=== PATIENT | female | born 1975 | race Caucasian/White ===

== ENCOUNTER 2018-03-24 01:06 | Outpatient (CLI) | payer OTHER, SELFPAY ==
[2018-03-24 11:32] LABS: HGB 12.3 g/dL (12.0-15.5); Mean Corp. HGB Concentration 32.4 g/dL (32.0-36.0); Mean Corpuscular Hemoglobin 27.6 pg (27.0-33.0); Mean Corpuscular Volume 85.4 fL (80-95); Mean Platelet Volume 10.3 fL (8.0-11.0); Platelet Count 362 x1000/uL (130-400); RBC 4.45 m/cumm (4.00-5.20); White Blood Cell Count 6.52 k/cumm (4.4-10.8)
[2018-03-24 11:58] LABS: Total Iron Binding Capacity 399 ug/dL (250-450)
[2018-03-24 12:12] LABS: Albumin 3.7 g/dL (3.4-5.0); Ferritin 30 ng/mL (8-388); TSH (W/Ref FT4) 0.59 uIU/mL (0.358-3.74)
== END 2018-03-24 01:26 ==
PROVIDERS: PCP Nurse Practitioner; Visit Provider Nurse Practitioner
DX: L65.9 Nonscarring hair loss, unspecified (principal)
CPT/HCPCS: 36415; 85027; 82040; 82728; 83550; 84443

== ENCOUNTER 2018-09-12 03:02 | Outpatient (CLI) | payer OTHER, SELFPAY | END 2018-09-12 03:22 | PROVIDERS: PCP Nurse Practitioner Family; Visit Provider Nurse Practitioner Family | DX: J98.9 Respiratory disorder, unspecified (principal) ==

== ENCOUNTER 2018-09-13 00:32 | Outpatient (CLI) | payer OTHER, SELFPAY ==
--- NOTE | 2018-09-13 07:20 | DI.US_ITS ---
SYMPTOMS/DIAGNOSIS: OCCASIONAL MENSTRUAL IRREGULARITY, N92.6, S/P TUBAL LIGATION PELVIC ULTRASOUND: A transabdominal and transvaginal examination was carried out. The uterus measures 7.3 cm in length, 5. 4 cm in height and 6.9 cm in width with an endometrial stripe thickness of 17 mm. The right ovary measures 3.3 x 1.4 x 1.3 cm. A dominant follicle measures 9 x 6 x 8 mm. The left ovary measures 2.2 x 1.1 x 1 cm. There is no evidence of pelvic free fluid. SUMMARY: Prominence of the endometrial stripe at 17 mm is demonstrated. The patient may be in the secretory phase. If there is any further question, then a follow-up pelvic ultrasound could be obtained.
--- NOTE | 2018-09-13 15:19 | DI.MAMMO_ITS ---
SYMPTOM/DIAGNOSIS: SCREENING Z12.31 MAMMOGRAM: Mammograms were interpreted according to the usual protocol including computer analysis with CAD system, tomosynthesis and C view imaging. Comparison with prior examinations. Breast density B. No suspicious microcalcifications seen. No suspicious masses are seen in the right breast. There are areas of nodularity in the upper outer quadrant of the left breast. These areas should be further evaluated with spot compression views. Ultrasound may be indicated at that time. IMPRESSION: Additional views of the left breast as described above. Category 0 Breast density category B. MQSA ASSESSMENT OF FINDINGS: Incomplete: Needs additional imaging evaluation. Category 0. Patient will receive a letter notifying them of these results. BI-RADS category B. There are scattered areas of fibroglandular density.
== END 2018-09-13 00:52 ==
PROVIDERS: PCP Nurse Practitioner Family; Visit Provider Nurse Practitioner Family
DX: Z12.31 Encounter for screening mammogram for malignant neoplasm of breast (principal); R92.8 Other abnormal and inconclusive findings on diagnostic imaging of breast; N92.6 Irregular menstruation, unspecified; Z98.51 Tubal ligation status
CPT/HCPCS: 77063; 77067; 76830; 76856

== ENCOUNTER 2018-09-22 00:51 | Outpatient (CLI) | payer OTHER, SELFPAY ==
--- NOTE | 2018-09-22 15:12 | DI.COMBO_ITS ---
SYMPTOMS/DIAGNOSIS: F/U ABNORMAL MAMMO, NODULARITY LEFT UPPER OUTER QUADRANT ADDITIONAL VIEWS OF THE LEFT BREAST AND A LEFT BREAST ULTRASOUND: No definite persistent nodule or abnormality is seen on the additional views of the left breast. A left breast ultrasound was performed. The upper inner and upper outer quadrants of the left breast were evaluated sonographically. No cystic or solid masses are seen. No evidence for malignancy. A six-month follow-up left mammogram is recommended for reevaluation. Category 3, breast density B. The findings were discussed with the patient on the date of the examination. MQSA ASSESSMENT OF FINDINGS: Probably benign. Six month follow-up recommended. Category 3. Patient will receive a letter notifying them of these results. BI-RADS category B. There are scattered areas of fibroglandular density.
== END 2018-09-22 01:11 ==
PROVIDERS: PCP Nurse Practitioner Family; Visit Provider Nurse Practitioner Family
DX: Z12.31 Encounter for screening mammogram for malignant neoplasm of breast (principal); R92.8 Other abnormal and inconclusive findings on diagnostic imaging of breast; N64.59 Other signs and symptoms in breast
CPT/HCPCS: 76642; 77063; 77067

== ENCOUNTER 2018-10-10 00:45 | Outpatient (CLI) | payer OTHER, SELFPAY ==
--- NOTE | 2018-10-10 09:00 | DI.US_ITS ---
SYMPTOM/DIAGNOSIS: MENSTRUAL IRREGULARITY, N92.6 PELVIC ULTRASOUND: Transabdominal and transvaginal examination was performed. The uterus measures 7.5 cm. long by 5 cm. AP by 6.6 cm. transverse. The endometrial stripe is thickened measuring up to 2 cm. in diameter, greatest thickness is seen in the fundal endometrium. No abnormal blood flow is seen. The right ovary measures 2.4 by 1.2 by 1.6 cm. There is normal blood flow. No evidence of torsion. The left ovary measures 2.8 by 2.8 by 2.6 cm. There is a 2.5 by 2.3 by 2.3 cm. cyst on the left ovary with internal debris. No abnormal blood flow is seen to the cyst. There is normal blood flow to the left ovary. No evidence of torsion. No significant free pelvic fluid or hydronephrosis is identified. IMPRESSION: 1. Persistent thickening of the endometrial stripe up to 2 cm. It is more focally thickened in the fundal endometrium. Mass cannot be entirely excluded. Follow up as clinically appropriate. 2. 2.5 cm. complex left ovarian cyst, likely reflecting a hemorrhagic cyst.
== END 2018-10-10 01:05 ==
PROVIDERS: PCP Nurse Practitioner Family; Visit Provider Nurse Practitioner Family
DX: N92.6 Irregular menstruation, unspecified (principal); R93.89 Abnormal findings on diagnostic imaging of other specified body structures; N83.12 Corpus luteum cyst of left ovary
CPT/HCPCS: 76830; 76856

== ENCOUNTER 2018-10-31 15:32 | Outpatient (REF) | payer OTHER, SELFPAY ==
--- NOTE | 2018-10-31 15:00 | ENDOMET_PTH ---
PATIENT: Mini Huerta LOC: [facility] U#:[id number] AGE/SX: 43/F ROOM: RE10/31/[address]: Mae Ryan MD : 1975 BED: DIS: 10/31/2018 SPEC #: [id number] RECD: 10/31/18 17:55 STATUS: KATE REQ #: [id number] RAKEL: 10/31/18 15:[address]: Mae Ryan DEPT: Surgical Specimen RECD BY: Janette Hernandez ENTERED: 10/31/18 17:55 SP TYPE: Endomet OT DR: LUIGI Leyva Tissues: 1 - ENDOMETRIUM BX/DORA Procedures: GROSS AND MICRO LEVEL 4 Comments: [id number]
== END 2018-10-31 15:52 ==
LOC: LBN 15:32
PROVIDERS: PCP Nurse Practitioner Family; Visit Provider Obstetrics & Gynecology
DX: N85.01 Benign endometrial hyperplasia (principal); N92.6 Irregular menstruation, unspecified
CPT/HCPCS: 88305

== ENCOUNTER 2018-12-01 10:01 | Outpatient (CLI) | payer OTHER, SELFPAY ==
[2018-12-01 11:36] LABS: Iron 70 ug/dL (50-175)
[2018-12-01 11:58] LABS: Ferritin 18 ng/mL (8-388); TSH 0.81 uIU/mL (0.358-3.74)
== END 2018-12-01 10:21 ==
PROVIDERS: PCP Nurse Practitioner Family; Visit Provider Internal Medicine
DX: G25.81 Restless legs syndrome (principal)
CPT/HCPCS: 36415; 82728; 83540; 84443

== ENCOUNTER 2019-03-28 01:05 | Outpatient (CLI) | payer OTHER, SELFPAY ==
--- NOTE | 2019-03-28 08:57 | DI.MAMMO_ITS ---
EXAM: MG MAMMO DIAGNOSTIC UNI CLINICAL HISTORY: 6mo f/u left breast mammogram R92.8. TECHNIQUE: Mammograms were interpreted according to the usual protocol including computer analysis w Brain in [employer] CAD system, tomosynthesis and C-view imaging. COMPARISON: Comparison is made with prior images. FINDINGS: When compared with the previous examination of 09/13/2018, there has been no interval change in the st atus of the left breast. There is a small radiodensity in the lateral portion of the breast which co uld represent an intramammary lymph node. IMPRESSION: No mass is identified on the six-month follow-up images of the breast. Category 1, BI-RADS B. BI-RADS Cat 1 - Negative. Breast Density - Category B - Scattered areas of fibroglandular density.
== END 2019-03-28 01:25 ==
PROVIDERS: PCP Nurse Practitioner Family; Visit Provider Nurse Practitioner Family
DX: Z12.31 Encounter for screening mammogram for malignant neoplasm of breast (principal); R92.8 Other abnormal and inconclusive findings on diagnostic imaging of breast; R59.0 Localized enlarged lymph nodes
CPT/HCPCS: 77061; 77065; G0279

== ENCOUNTER 2019-07-19 01:44 | Outpatient (CLI) | payer OTHER, SELFPAY | END 2019-07-19 02:04 | PROVIDERS: PCP Nurse Practitioner Family; Visit Provider Nurse Practitioner Family | DX: R69 Illness, unspecified (principal) | CPT/HCPCS: 36415; 85025 ==

== ENCOUNTER 2019-07-24 10:04 | Outpatient (CLI) | payer OTHER, SELFPAY ==
[2019-07-24 13:27] LABS: Abs Immature Grans 0.02 k/cumm (0.0-0.09); Absolute Basophil Count 0.04 k/cumm (0.0-0.2); Absolute Eosinophil Count 0.06 k/cumm (0.0-0.7); Absolute Lymphocyte Count 2.61 k/cumm (1.2-3.4); Absolute Monocyte Count 0.71 k/cumm (0.11-0.7); Absolute Neutrophil Count 3.28 k/cumm (1.2-6.7); Basophils % 0.6; Eosinophils % 0.9; HCT 39.8 % (36.0-46.0); HGB 12.9 g/dL (12.0-15.5); Immature Grans % 0.3 %; Lymphocytes % 38.8; Mean Corp. HGB Concentration 32.4 g/dL (32.0-36.0); Mean Corpuscular Hemoglobin 27.6 pg (27.0-33.0); Mean Corpuscular Volume 85.2 fL (80-95); Mean Platelet Volume 10.7 fL (8.0-11.0); Monocytes % 10.6; Neutrophils % 48.8; Platelet Count 359 x1000/uL (130-400); RBC 4.67 m/cumm (4.00-5.20); White Blood Cell Count 6.72 k/cumm (4.4-10.8)
[2019-07-24 14:05] LABS: ALT 23 U/L (14-59); AST 10 U/L (15-37); Albumin 3.9 g/dL (3.4-5.0); Alkaline Phosphatase 57 U/L (46-116); Anion Gap 7.6 mmol/L (3-11); BUN 20 mg/dL (7-18); Bilirubin, Total 0.2 mg/dL (0.2-1.0); CO2 28.4 mmol/L (21.0-32.0); CREATININE 0.78 mg/dL (0.55-1.02); Chloride 105 mmol/L (98-107); Glucose 78 mg/dL (74-106); Potassium 4.4 mmol/L (3.5-5.1); Sodium 141 mmol/L (136-145); Total Protein 7.3 g/dL (6.4-8.2)
[2019-07-24 14:16] LABS: Hemoglobin A1C 5.9 % (3.8-5.6)
[2019-07-30 15:56] LABS: Misc Referral (MAYO) See Comments
== END 2019-07-24 10:24 ==
PROVIDERS: PCP Nurse Practitioner Family; Visit Provider Nurse Practitioner Family
DX: E78.5 Hyperlipidemia, unspecified (principal); H30.91 Unspecified chorioretinal inflammation, right eye
CPT/HCPCS: 36415; 80053; 81374; 83036; 85025

== ENCOUNTER 2019-08-14 08:09 | Outpatient (CLI) | payer OTHER, SELFPAY ==
[2019-08-14 14:33] LABS: Calculated LDL 168 mg/dL (<100); Cholesterol 233 mg/dL (<200); HDL Cholesterol 45 mg/dL (40-60); Triglyceride 104 mg/dL (<150)
== END 2019-08-14 08:29 ==
PROVIDERS: PCP Nurse Practitioner Family; Visit Provider Nurse Practitioner Family
DX: E78.5 Hyperlipidemia, unspecified (principal)
CPT/HCPCS: 36415; 80061

== ENCOUNTER 2019-09-06 10:31 | Outpatient (REF) | payer OTHER, SELFPAY ==
--- NOTE | 2019-09-06 09:30 | PAPFT_PTH ---
PATIENT: Mini Huerta LOC: [facility] U#:[id number] AGE/SX: 44/F ROOM: RE09/06/[address]: LUIGI Leyva : 1975 BED: DIS: 09/06/2019 SPEC #: [id number] RECD: 09/06/19 12:39 STATUS: KATE GARCIA #: [id number] RAKEL: 09/06/19 09:[address]: Zoe Rodriguez DEPT: [facility] Cytology RECD BY: Janette Hernandez Tissues: 1 - CX/ENDOCX FOR PAP SMEARS Procedures: PAP THIN PREP/UVM Screening HPV DNA PROBE Comments: [id number]
== END 2019-09-06 10:51 ==
LOC: LBN 10:31
PROVIDERS: PCP Nurse Practitioner Family; Visit Provider Nurse Practitioner Family
DX: Z12.4 Encounter for screening for malignant neoplasm of cervix (principal); Z11.51 Encounter for screening for human papillomavirus (HPV)
CPT/HCPCS: 88142; 87624

== ENCOUNTER 2019-11-28 01:18 | Outpatient (CLI) | payer OTHER, SELFPAY ==
--- NOTE | 2019-11-28 06:15 | DI.MAMMO_ITS ---
EXAM: MAMMO SCREENING CLINICAL HISTORY: screening,Z12.39 TECHNIQUE: Mammograms were interpreted according to the usual protocol including computer analysis w [employer] CAD system, tomosynthesis and C-view imaging. COMPARISON: 2016 through 2019 FINDINGS: The breasts are composed of scattered fibroglandular densities, Breast Density category B. Right breast: No suspicious masses or suspicious microcalcifications are seen. No skin thickening or abnormal axillary lymph nodes are seen. There has been no significant change from prior exams. Left breast: There has been interval increase in size of 2 previously noted nodules in the upper oute r quadrant of the posterior left breast. There is a suggestion of spiculation. No associated calcif ications are seen. No normal axillary lymph nodes are visible. IMPRESSION: Right breast: BI-RADS category 1, yearly screening mammography is recommended. Left breast: BI-RADS Cat 0 - Assessment Incomplete: Need additional imaging evaluation spot compressi on views and ultrasound are requested for further evaluation of areas of nodularity in the upper oute r quadrant of the left breast. Breast density category B, scattered fibroglandular densities.
== END 2019-11-28 01:38 ==
PROVIDERS: PCP Nurse Practitioner Family; Visit Provider Nurse Practitioner Family
DX: Z12.31 Encounter for screening mammogram for malignant neoplasm of breast (principal); R92.8 Other abnormal and inconclusive findings on diagnostic imaging of breast
CPT/HCPCS: 77063; 77067

== ENCOUNTER 2019-12-08 10:56 | Emergency (ER) | payer OTHER, SELFPAY ==
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
[2019-12-08 11:09] VITALS: BP 146/79; PULSE 70; TEMP 36.8; O2SAT 97
[2019-12-10 07:08] LABS: COVID-19 RT-PCR Result NEGATIVE (Negative)
== END 2019-12-08 11:20 | disposition home or self-care (01) ==
PROVIDERS: Emergency Provider Emergency Medicine; PCP Nurse Practitioner Family
DX: Z20.828 Contact with and (suspected) exposure to other viral communicable diseases (principal)
CPT/HCPCS: 99281; U0003

== ENCOUNTER 2019-12-13 01:23 | Outpatient (CLI) | payer OTHER, SELFPAY ==
--- NOTE | 2019-12-13 | DI.US_ITS ---
EXAM: MG MAMMO SCREEN CALL BACK UNI CLINICAL HISTORY: F/U ABNL MAMMO, INCREASE IN SIZE OF 2 NODULES, UOQ. TECHNIQUE: Craniocaudal and mediolateral oblique Full Field Digital Mammography views of the left br east with Computer Aided Diagnosis followed by Tomosynthesis and left breast ultrasound. COMPARISON: Priors available for comparison. FINDINGS: Mammography/Tomosynthesis: Masses/Architectural Distortion: The nodular opacity in the upper-outer left breast is again seen. I t now measures 8.7 mm compared with 6.8 mm. Borders appear somewhat irregular and spiculated. No as sociated microcalcification is seen. Microcalcifictions: No suspicious pleomorphic-type are seen. Skin Thickening/Nipple Retraction: None. Left breast US: Echotexture: Normal appearance of the glandular tissue. Shadowing: No suspicious foci. Cyst: None. Solid lesions: There is a suggestion of a hypoechoic area in the upper outer quadrant of the left kayla ast measuring approximately 8 mm. This may correspond to the mammographic abnormality. Its appearan ce is worrisome. There does appear to be some shadowing. Ductal dilation: None. IMPRESSION: 1. Interval increase in size and irregularity of the mass in the upper-outer quadrant of the left kayla ast. 2. Biopsy is recommended. 3. The findings were discussed with the patient and the primary care physician on the date of the exa mination. BI-RADS Category 4 - Suspicious Abnormality: Biopsy should be considered Breast Density - Category B - Scattered areas of fibroglandular density A negative radiographic report should not delay biopsy if a dominant or clinically suspicious mass is present. Up to ten percent of cancers are not identified on mammography. A negative report may reinforce clinical impression. Adenosis and dense breasts may obscure an underlying neoplasm. False positive reports average 6 to 10%. Patient will receive a letter notifying them of these results.
== END 2019-12-13 01:43 ==
PROVIDERS: PCP Nurse Practitioner Family; Visit Provider Nurse Practitioner Family
DX: Z12.31 Encounter for screening mammogram for malignant neoplasm of breast (principal); R92.8 Other abnormal and inconclusive findings on diagnostic imaging of breast; N63.21 Unspecified lump in the left breast, upper outer quadrant
CPT/HCPCS: 76642; 77063; 77067

== ENCOUNTER 2019-12-31 12:36 | Outpatient (REF) | payer OTHER, SELFPAY ==
[2019-12-31 13:51] LABS: Abs Immature Grans 0.02 k/cumm (0.0-0.09); Absolute Basophil Count 0.03 k/cumm (0.0-0.2); Absolute Eosinophil Count 0.11 k/cumm (0.0-0.7); Absolute Lymphocyte Count 2.11 k/cumm (1.2-3.4); Absolute Monocyte Count 0.75 k/cumm (0.11-0.7); Absolute Neutrophil Count 3.37 k/cumm (1.2-6.7); Basophils % 0.5; Eosinophils % 1.7; HCT 37.5 % (36.0-46.0); HGB 12.1 g/dL (12.0-15.5); Immature Grans % 0.3 %; Mean Corp. HGB Concentration 32.3 g/dL (32.0-36.0); Mean Corpuscular Hemoglobin 27.6 pg (27.0-33.0); Mean Corpuscular Volume 85.4 fL (80-95); Mean Platelet Volume 10.6 fL (8.0-11.0); Monocytes % 11.7; Neutrophils % 52.8; Platelet Count 365 x1000/uL (130-400); RBC 4.39 m/cumm (4.00-5.20); RBC Distribution Width 12.9 % (11.7-14.6); White Blood Cell Count 6.39 k/cumm (4.4-10.8)
[2019-12-31 14:07] LABS: ALT 25 U/L (14-59); AST 16 U/L (15-37); Albumin 3.7 g/dL (3.4-5.0); Alkaline Phosphatase 60 U/L (46-116); Anion Gap 9.6 mmol/L (3-11); BUN 17 mg/dL (7-18); Bilirubin, Total 0.2 mg/dL (0.2-1.0); CO2 25.4 mmol/L (21.0-32.0); CREATININE 0.82 mg/dL (0.55-1.02); Calcium 8.7 mg/dL (8.5-10.1); Chloride 102 mmol/L (98-107); Glucose 101 mg/dL (74-106); Potassium 4.1 mmol/L (3.5-5.1); Sodium 137 mmol/L (136-145); Total Protein 7.2 g/dL (6.4-8.2)
== END 2019-12-31 12:56 ==
LOC: LBN 12:36
PROVIDERS: PCP Nurse Practitioner Family; Visit Provider Surgery
DX: C50.412 Malignant neoplasm of upper-outer quadrant of left female breast (principal); Z17.0 Estrogen receptor positive status [ER+]
CPT/HCPCS: 80053; 85025

== ENCOUNTER 2020-08-05 10:48 | Outpatient (CLI) | payer OTHER, SELFPAY ==
[2020-08-06 12:47] LABS: COVID-19 RT-PCR UVMMC Result Negative (Negative)
== END 2020-08-05 10:49 | disposition home or self-care (01) ==
LOC: LBO 10:48
PROVIDERS: PCP Nurse Practitioner Family; Visit Provider Family Medicine
DX: Z20.822 Contact with and (suspected) exposure to COVID-19 (principal)
CPT/HCPCS: U0003

== ENCOUNTER 2020-08-08 01:41 | Outpatient (CLI) | payer OTHER, SELFPAY ==
[2020-08-08 21:44] LABS: COVID-19 RT-PCR UVMMC Result Negative (Negative)
== END 2020-08-08 01:42 | disposition home or self-care (01) ==
LOC: LBO 01:42
PROVIDERS: PCP Nurse Practitioner Family; Visit Provider Nurse Practitioner Family
DX: Z20.822 Contact with and (suspected) exposure to COVID-19 (principal)
CPT/HCPCS: U0003

== ENCOUNTER 2020-08-11 08:05 | Outpatient (CLI) | payer OTHER, SELFPAY ==
[2020-08-12 16:15] LABS: COVID-19 RT-PCR UVMMC Result Positive (Negative)
== END 2020-08-11 08:06 | disposition home or self-care (01) ==
LOC: LBO 08:06
PROVIDERS: PCP Nurse Practitioner Family; Visit Provider Nurse Practitioner Family
DX: Z20.822 Contact with and (suspected) exposure to COVID-19 (principal)
CPT/HCPCS: U0003

== ENCOUNTER 2020-09-12 14:44 | Outpatient (REF) | payer OTHER, SELFPAY ==
[2020-09-12 13:53] LABS: Hemoglobin A1C 5.6 % (<5.7)
[2020-09-12 14:03] LABS: Anion Gap 10.2 mmol/L (3-11); BUN 17 mg/dL (7-18); CO2 26.8 mmol/L (21.0-32.0); CREATININE 0.8 mg/dL (0.55-1.02); Calcium 8.9 mg/dL (8.5-10.1); Calculated LDL 78 mg/dL (<100); Chloride 104 mmol/L (98-107); Cholesterol 183 mg/dL (<200); Glucose 107 mg/dL (74-106); HDL Cholesterol 34 mg/dL (40-60); Potassium 3.9 mmol/L (3.5-5.1); Sodium 141 mmol/L (136-145); Triglyceride 356 mg/dL (<150)
--- OUTSIDE RECORDS SUMMARY | 2020-09-12 14:46 | XMS_ITS ---
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 Notes: seasonal allergies Medications Name Status Start Date Stop Date ? ? acetaminophen 300 mg-codeine 30 mg Completed ? 11/30/2018 tablet amoxicillin 500 mg capsule Completed ? 11/30 amoxicillin 875 mg-potassium Completed ? clavulanate 125 mg tablet Breo Ellipta 200 mcg-25 mcg/dose powder for inhalation Active ? Not available Inhale 1 puff every day by inhalation route. codeine 10 mg-guaifenesin 100 mg/5 mL Completed ? 11/30/2018 oral liquid doxycycline hyclate 100 mg capsule Completed ? 11/30/2018 fluticasone propionate 50 mcg/actuation Active ? Not available nasal spray,suspension Iron (ferrous sulfate) 325 mg (65 mg iron) tablet Active ? Not available Take 1 tablet every day by oral route. Lexapro 10 mg tablet Active ? Not availab le montelukast 10 mg tablet Active ? Not kristopher ilable prednisone 20 mg tablet Active ? Not avai lable prednisone 50 mg tablet Completed ? 12/01/19 19 ProAir HFA 90 mcg/actuation aerosol Active ? Not available inhaler Symbicort 160 mcg-4.5 mcg/actuation HFA Active ? Not available aerosol inhaler Problems Name Status Onset Date Source ? Asthma Active 11/30/2018 ? Snoring Active 11/30/2018 ? Procedures None recorded. Results Lab Results Date Name Specimen Result Interpretation Description Value Range Status Address ? 12/01/2018 TSH, Serum ? No observation ? ? ? [facility] or Plasma recorded. [facility]: [address] [facility], [place] [facility] 12/01/2018 Iron, Serum ? No observation ? ? ? [facility] recorded. [facility]: [address] [place] [facility] Past Encounters None recorded. Social History Tobacco Smoking Status Former Smoker Notes: quit 20 11, smoked 22 years x 1.5ppd = 33 pack yea rs Vaccine List Vaccine Type influenza, injectable, quadrivalent 04/03/2018 Plan of Care Reminders Provider Appointments None ? ? recorded. Lab None ? ? recorded. Referral None ? ? recorded. Procedures None ? ? recorded. Surgeries None ? ? recorded. Imaging None ? ? recorded. Vitals Height Weight BMI Blood Pressure 165.1 cm 99.2 kg 36.4 kg/m2 120/80 mm[Hg]
== END 2020-09-12 14:45 | disposition home or self-care (01) ==
LOC: LBN 14:44
PROVIDERS: PCP Nurse Practitioner Family; Visit Provider Nurse Practitioner Family
DX: R73.03 Prediabetes (principal)
CPT/HCPCS: 80048; 80061; 83036

== ENCOUNTER 2020-09-23 01:33 | Outpatient (CLI) | payer OTHER, SELFPAY ==
--- NOTE | 2020-09-23 06:45 | DI.US_ITS ---
EXAM: US PELVIS TRANSVAGINAL CLINICAL HISTORY: hx of left ovarian cyst, reassess,n83.202. TECHNIQUE: Transabdominal and transvaginal pelvic ultrasound was performed using standard protocol. COMPARISON: US US PELVIS TRANSVAGINAL from 10/10/2018 FINDINGS: KIDNEYS: Kidneys are symmetric in size. No evidence of renal calculi. No evidence of hydronephrosis. No renal mass or cyst identified. UTERUS: Position: Anteverted. Size: 10.3 long by 6.3 AP by 8.5 transverse cm Endometrium: 2.2 cm. The endometrium is homogeneous but thickened. Myometrium: Unremarkable. Cervix: Unremarkable. OVARIES: Right: 1.9 x 1.2 x 1.3 cm Cyst or mass: Small functional cysts. No evidence of torsion. Left: 6.9 x 3.8 x 3.4 cm Cyst or mass: There is a 3.5 x 3.4 x 3.4 cm simple cyst and a 2.8 x 2.6 x 3.2 cm simple cyst. No int ernal blood flow are solid components are noted. No evidence of ovarian torsion. DOPPLER: Color: Symmetric and uniform flow to both ovaries. No hyperemia. Duplex: Normal ovarian arterial waveforms visualized. CUL-DE-SAC: Free fluid: None. Other: None. IMPRESSION: 1. Normal sonographic appearance of the kidneys. 2. Normal-appearing uterus with endometrial stripe within normal limits. 3. Simple left ovarian cysts. The larger measures 3.5 cm. The smaller measures 3.2 cm. 4. No evidence of ovarian torsion. DATA REPOSITORY:
== END 2020-09-23 01:53 ==
PROVIDERS: PCP Nurse Practitioner Family; Visit Provider Nurse Practitioner Family
DX: N83.292 Other ovarian cyst, left side (principal)
CPT/HCPCS: 76830; 76856

== ENCOUNTER 2021-06-04 16:08 | Outpatient (REF) | payer OTHER, SELFPAY ==
[2021-06-05 11:52] LABS: COVID-19 RT-PCR UVMMC Result Negative (Negative)
== END 2021-06-04 16:09 | disposition home or self-care (01) ==
LOC: LBN 16:08
PROVIDERS: PCP Nurse Practitioner Family; Visit Provider Nurse Practitioner Family
DX: Z20.822 Contact with and (suspected) exposure to COVID-19 (principal)
CPT/HCPCS: U0003

== ENCOUNTER 2021-06-18 23:05 | Outpatient (REF) | payer OTHER, SELFPAY ==
[2021-06-20 11:40] LABS: COVID-19 RT-PCR UVMMC Result Negative (Negative)
== END 2021-06-18 23:06 | disposition home or self-care (01) ==
LOC: NCHCN 23:05
PROVIDERS: PCP Nurse Practitioner Family; Visit Provider Nurse Practitioner Family
DX: Z20.822 Contact with and (suspected) exposure to COVID-19 (principal)
CPT/HCPCS: U0003

== ENCOUNTER 2021-07-20 19:07 | Outpatient (REF) | payer OTHER, SELFPAY ==
[2021-07-21 22:40] LABS: COVID-19 RT-PCR UVMMC Result Negative (Negative)
== END 2021-07-20 19:08 | disposition home or self-care (01) ==
LOC: LBN 19:07
PROVIDERS: PCP Nurse Practitioner Family; Visit Provider Nurse Practitioner Family
DX: Z20.822 Contact with and (suspected) exposure to COVID-19 (principal)
CPT/HCPCS: U0003

== ENCOUNTER 2021-09-14 15:19 | Outpatient (REF) | payer OTHER, SELFPAY ==
[2021-09-14 19:45] LABS: Abs Immature Grans 0.01 10^3/uL (0.0-0.06); Absolute Basophil Count 0.06 10^3/uL (0.0-0.2); Absolute Eosinophil Count 0.07 10^3/uL (0.0-0.7); Absolute Lymphocyte Count 2.43 10^3/uL (1.2-3.4); Absolute Monocyte Count 0.68 10^3/uL (0.1-0.8); Absolute Neutrophil Count 2.77 10^3/uL (1.2-6.7); Eosinophils % 1.2; HCT 39.7 % (36.0-46.0); HGB 12.5 g/dL (11.2-15.7); Immature Grans % 0.2; Lymphocytes % 40.4; MCH 27.4 pg (27.0-33.0); MCHC 31.5 % (32.0-36.0); MCV 86.9 fL (80-95); MPV 10.8 fL (8.0-11.0); Monocytes % 11.3; Neutrophils % 45.9; Nucleated RBC 0 %; Platelet Count 332 10^3/uL (130-400); RBC 4.57 10^6/uL (3.93-5.22); RDW 12.2 % (11.7-14.6); RDW-SD 39.3 fL; WBC 6.02 10^3/uL (4.4-10.8)
[2021-09-14 20:03] LABS: ALT 21 U/L (14-59); AST 13 U/L (15-37); Albumin 3.8 g/dL (3.4-5.0); Alkaline Phosphatase 48 U/L (46-116); Anion Gap 8.6 mmol/L (3-11); BUN 18 mg/dL (7-18); Bilirubin, Total 0.3 mg/dL (0.2-1.0); CO2 26.4 mmol/L (21.0-32.0); CREATININE 0.9 mg/dL (0.55-1.02); Calcium 9.2 mg/dL (8.5-10.1); Chloride 105 mmol/L (98-107); FREE T4 0.75 ng/dL (0.76-1.46); Glucose 99 mg/dL (74-106); Potassium 4.5 mmol/L (3.5-5.1); Sodium 140 mmol/L (136-145); TSH 0.92 uIU/mL (0.36-3.74); Total Protein 7.4 g/dL (6.4-8.2)
== END 2021-09-14 15:20 | disposition home or self-care (01) ==
LOC: LBN 15:19
PROVIDERS: PCP Nurse Practitioner Family; Visit Provider Nurse Practitioner Family
DX: C50.412 Malignant neoplasm of upper-outer quadrant of left female breast; N95.1 Menopausal and female climacteric states; F41.8 Other specified anxiety disorders
CPT/HCPCS: 80053; 84439; 84443; 85025

== ENCOUNTER 2021-09-23 00:22 | Outpatient (CLI) | payer OTHER, SELFPAY ==
--- NOTE | 2021-09-23 09:33 | DI.MAMMO_ITS ---
Exam(s) MG MAMMO SCREENING 60 MIN DUR EXAM: MG MAMMO SCREENING 60 MIN DUR CLINICAL HISTORY: breast cancer screening,personal h/o breast ca,z85.3. TECHNIQUE: Bilateral full field digital CC and MLO mammographic images were obtained with 3D tomosyn thesis and utilizing computer aided detection (CAD). COMPARISON: Prior mammograms were reviewed, the most recent being September 2020. Patient underwent rec ent left breast lumpectomy malignancy in February 2020.. FINDINGS: Scar tissue at the lumpectomy site in the upper-outer quadrant left breast is unchanged. No new mass es nor malignant-appearing microcalcification groups evident at this location or elsewhere in either breast. There is no new significant architectural distortion nor skin thickening-retraction. IMPRESSION: 1. Stable appearance of the left breast lumpectomy site. 2. No radiographic evidence of malignancy in either breast BI-RADS Category 2 - Benign Findings Breast Density - Category B - Scattered areas of fibroglandular density Breast density Category C or D implies that the patient has dense breast tissue. Dense breast tissue can make it harder to find cancer on a mammogram. Dense breast tissue is also associated with an incr eased risk of breast cancer. This information about the result of the mammogram report was provided to the patient to raise their awareness. Use this report when you speak with the patient about their risks for breast cancer, which includes their family history. At that time, you may recommend additional screening tests (Ultrasoun d or MRI) as these tests may add significant information. A negative radiographic report should not delay biopsy if a dominant or clinically suspicious mass is present. Up to ten percent of cancers are not identified on mammography. A negative report may reinforce clinical impression. Adenosis and dense breasts may obscure an underlying neoplasm. False positive reports average 6 to 10%. Patient will receive a letter notifying them of these results.
== END 2021-09-23 00:42 ==
PROVIDERS: PCP Nurse Practitioner Family; Visit Provider Nurse Practitioner Family
DX: Z85.3 Personal history of malignant neoplasm of breast (principal); Z12.31 Encounter for screening mammogram for malignant neoplasm of breast
CPT/HCPCS: 77063; 77067

== ENCOUNTER 2021-11-17 16:39 | Outpatient (REF) | payer OTHER, SELFPAY ==
[2021-11-17 21:08] LABS: Anion Gap 8.6 mmol/L (3-11); BUN 15 mg/dL (7-18); CO2 28.4 mmol/L (21.0-32.0); Calcium 8.7 mg/dL (8.5-10.1); Chloride 100 mmol/L (98-107); Estimated GFR 59.96 (mL/min/1.73m2); Glucose 105 mg/dL (74-106); Potassium 4.4 mmol/L (3.5-5.1); Sodium 137 mmol/L (136-145)
== END 2021-11-17 16:40 | disposition home or self-care (01) ==
LOC: LBN 16:39
PROVIDERS: PCP Nurse Practitioner Family; Visit Provider Nurse Practitioner Family
DX: E66.9 Obesity, unspecified (principal)
CPT/HCPCS: 80048

== ENCOUNTER 2022-01-11 09:54 | Day surgery (SDC) | payer OTHER, SELFPAY ==
--- NOTE | 2022-01-11 06:06 | ANES.PREOP_ITS ---
General Info Height: 5 ft 5 in Weight: 97.239 kg Body Mass Index (BMI): 35.6 Surgical Procedure: Operation Date: 01/11/22 11:20 Proposed Procedure Side Surgeon madeline Chahal MD Meds Allergies and Home Medications Allergies Allergy/AdvReac Type Severity Reaction Status Date / Time No Known Allergies Allergy Verified 01/08/22 06:23 Home Medication Medication Instructions Recorded cholecalciferol (vitamin D3) 125 5,000 unit PO DAILY 03/22/18 mcg (5,000 unit) capsule epinephrine 0.3 mg/0.3 mL 0.3 ml IM ONCE PRN 09/07/19 injection, auto-injector hypersensitivity reaction #2 ea fluticasone propionate 50 2 spray NS DAILY PRN allergy 10/10/19 mcg/actuation nasal symptoms #36.4 grams spray,suspension albuterol sulfate 90 mcg/actuation 2 puff inhalation Q4H PRN PRN 06/30/21 aerosol inhaler (ProAir HFA) shortness of breath or wheezing #8.5 grams Lexapro 10 mg tablet (escitalopram 15 mg PO DAILY #135 tabs 07/16/21 oxalate) evening primrose oil 500 mg capsule 500 mg PO DAILY 09/16/21 dextroamphetamine-amphetamine 10 10 mg PO BID #56 tabs 10/14/21 mg tablet pen needle, diabetic 31 gauge x #100 ea 10/14/2111/16 (BD Ultra-Fine Short Pen Needle) semaglutide (weight loss) 1 mg/0.5 1 mg (0.5 mL) subcut QWEEK #2 mL 10/14/21 mL subcutaneous pen injector semaglutide (weight loss) 1.7 1.7 mg (0.75 mL) subcut QWEEK #3 mL 10/14/21 mg/0.75 mL subcutaneous pen injector semaglutide (weight loss) 2.4 2.4 mg (0.75 mL) subcut QWEEK #9 mL 10/14/21 mg/0.75 mL subcutaneous pen injector semaglutide 0.25 mg or 0.5 mg (2 0.25 - 0.5 mg (0.2 - 0.4 mL) 10/16/21 mg/1.5 mL) subcutaneous pen subcut QWEEK #3 SYRGS injector tamoxifen 20 mg tablet 20 mg PO DAILY 12/14/21 Current Visit Medications: Current Medications Generic Name Dose Route Start Last Admin Trade Name Le PRN Reason Stop Dose Admin Ringer's Solution 1,000 mls @ 80 mls/hr 01/11/22 06:00 IV 02/07/22 23:59 INFUSION TIESHA IV Miscellaneous Supplies 1 each 01/11/22 06:00 Iv Access IV 02/07/22 23:59 DIRECTED TIESHA Sodium Chloride 0 ml 01/11/22 06:00 Normal Saline Flush 10 Ml Syr IV 02/07/22 23:59 PRN PRN Sodium Chloride 0 ml 01/11/22 06:00 Normal Saline 10 Ml Vial IJ 02/07/22 23:59 DIRECTED PRN Sterile Water 0 ml 01/11/22 06:00 Water,Injection,Sterile 10 Ml Vial IJ 02/07/22 23:59 DIRECTED PRN PFSH Active Problems Active Problems: Problem Status Onset Code Obesity E66.9 Screening for colon cancer Z12.11 Medical History Medical History (Updated 01/08/22 @ 06:22 by Kevyn Christensen) Asthma Attention deficit disorder Birdshot choroidopathy of right eye Cigarette smoker former- quit 10+ yrs ago COVID-19 virus infection Symptom onset 08/10/20, tested positive 08/11/2011/2021 Generalized anxiety disorder Hyperlipidemia Malignant neoplasm of left breast (12/2019) DCIS, LCIS s/p partial mastectomy, radiation, followed by [facility] Perimenopausal symptoms Prediabetes Surgical History Surgical History History of bilateral tubal ligation (~2012) Status post partial mastectomy of left breast (02/15/20) Tobacco Smoking/Tobacco Use Status: Former Tobacco Use Passive smoking exposure: Yes Second hand exposure: Yes Alcohol Alcohol Intake: former Year quit: 2017 Substance Use Substance use: Never Substance use type: does not use Prental History History 2 Para 2 Hx # Term Pregnancies Multiple births Hx # Pregnancies Ectopic pregnancies AB induced Hx Number of Living Children 2 AB spontaneous Vital Signs and Lab Results Vital Signs Most Recent Vital Signs in EMR: Temp Pulse Resp BP Pulse Ox 36.4 C L 78 16 134/94 H 97 01/11/22 10:22 01/11/22 10:22 01/11/22 10:22 01/11/22 10:22 07 10:22 Lab Results Blood Type / Crossmatch: No Data to Display Complete Blood Count: No Data to Display Complete Metabolic Panel: No Data to Display Liver Function Panel: No Data to Display Coagulation Panel: No Data to Display Cardiac Panel: No Data to Display Arterial Blood Gas: No Data to Display Venous Blood Gas: No Data to Display Pancreas Panel: No Data to Display Thyroid Panel: No Data to Display Infectious Disease: No Data to Display Blood Cultures: No Data to Display Toxicology Panel: No Data to Display Panel: No Data to Display Anesthesia Assessment and Plan Anesthesia History Personal History: No History of Anesthesia Complications Family History: No Family History of Anesthesia Complications Implantable Cardiac Device Does patient have a Pacemaker or an ICD?: No ASA Classification ASA Score: ASA 2 Anesthesia Plan Resuscitation Status: Full Code Anesthesia Technique: General Anesthesia Airway Planned: Natural Airway Monitors Used: Standard Monitors Preoperative Comments:: 46 yo female for screening colo. Sig PMHx: asthma (albuterol), former smoker, add/anxiety (lexapro), breast CA (partial mastectomy/radiation)
--- NOTE | 2022-01-11 06:29 | W.COLOREPORT ---
Colonoscopy Report Date of procedure: 01/11/22 Pre-op diagnosis general: colon cancer screening Procedure: Colonoscopy Surgeon: Charity Chahal Anesthesia Type: General:No Airway Complications: None Disposition: same day Indications: Pt seen at the request of PCP regarding colon cancer screening. Pt has never had a colon cancer screening before.? Denies problems with diarrhea.? No pain or difficulty with bowel movements.?? There is no family history of any colon cancer- that she knows of.? Pt has not had any unintentional weight loss.? Their appetite is good.? No heart, lung, or kidney problems. No heartburn or indigestion. No prior colo-rectal surgery.? No prior DILAN.? No problems with anesthesia in the past. NO family hx of colorectal cancer on mother side.? She has no no hx on father's isde.? Lately she has some constipation, and will occ have some blood w/ hard stools. This Has started since she started the semaglutide- for weight lose. Prep: Miralax/Dulcolax Procedure Description: After informed consent was obtained the patient was taken to the procedure room and placed in a left decubitous position. Monitors were applied and a time out was done. The patients name, date of , procedure, allergies to medications and metal in their body was reviewed. The patient was then sedated. Once sedated and comfortable a rectal exam was done. External exam was normal. Internal exam revealed a normal sphincter tone and no palpable masses. The scope was then introduced and retro-flexed. [] internal hemorrhoids, polyps or masses were identified on retro-flexion. The scope was then advanced to the cecum [] difficulty. The ileocecal vlave and appendiceal orifice were identified. The prep was []. The scope was then slowly retracted over [] minutes back into the rectum. Polyps were removed at []. There was [] diverticulosis noted. The scope was removed and the patient was woken up and taken back to Same day surgery in stable condition. The patient tolerated the procedure well and there were no immediate complications. Follow up: The patient should follow up in [] years unless they develop changes in bowel habits or other new gastrointestinal complaints.
--- NOTE | 2022-01-11 06:30 | W.PM.DSUDISC ---
Discharge Plan Disposition Patient Disposition: HOME Condition: Good Discharge Details Reason For Visit: colon cancer screening Attending Provider: Charity Chahal Primary Care Provider: Zoe Rodriguez Home Meds and New Rx's Prescriptions: No Action cholecalciferol (vitamin D3) 5,000 unit capsule 5,000 unit PO DAILY epinephrine 0.3 mg/0.3 mL auto-injector 0.3 ml IM ONCE PRN (Reason: hypersensitivity reaction) Qty: 2 0RF Rx Instructions: Administer once and immediately call emergency services albuterol sulfate [ProAir HFA] 90 mcg/actuation HFA aerosol inhaler 2 puff Inhalation Q4H PRN PRN (Reason: shortness of breath or wheezing) Qty: 8.5 5RF semaglutide (weight loss) 1 mg/0.5 mL pen injector 1 mg subcut QWEEK Qty: 2 0RF Rx Instructions: Week 9 through week 12: 1 mg once weekly semaglutide (weight loss) 1.7 mg/0.75 mL pen injector 1.7 mg subcut QWEEK Qty: 3 0RF Rx Instructions: Week 13 through week 16: 1.7 mg once weekly semaglutide (weight loss) 2.4 mg/0.75 mL pen injector 2.4 mg subcut QWEEK Qty: 9 4RF Rx Instructions: Week 17 and thereafter (maintenance dosage): 2.4 mg once weekly (DME) pen needle, diabetic [BD Ultra-Fine Short Pen Needle] 31 gauge x 5/16 needle See Rx Instructions .MEDSUPPLY Qty: 100 4RF Rx Instructions: Use with semaglutide pen daily dextroamphetamine-amphetamine 10 mg tablet 10 mg PO BID MDD 20mg Qty: 56 0RF Rx Instructions: Take 1 tablet twice a day, administer doses at least 4-6 hours apart tamoxifen 20 mg tablet 20 mg PO DAILY fluticasone propionate 50 mcg/actuation spray,suspension 2 spray NS DAILY PRN (Reason: allergy symptoms) Qty: 36.4 4RF escitalopram oxalate [Lexapro] 10 mg tablet 15 mg PO DAILY Qty: 135 4RF evening primrose oil 500 mg capsule 500 mg PO DAILY semaglutide 0.25 mg or 0.5 mg(2 mg/1.5 mL) pen injector 0.25 - 0.5 mg subcut QWEEK Qty: 3 0RF Rx Instructions: Week 1 through week 4: 0.25 mg once weekly Week 5 through week 8: 0.5 mg once weekly Discharge Instructions Additional Instructions: Findings: Follow up: Please call if you develop: fevers >101.5 Nausea or Vomiting Abdominal pain that is not transient Rectal bleeding that is more then a tbsp A hard abdomen and inability to pass gas DAY SURGERY UNIT POST ENDOSCOPY INSTRUCTIONS Instructions for everyone who is given Anesthesia: For your safety, please do the following for the next 24 Hours: a. Do not drive or operate dangerous equipment b. Do not drink alcohol beverages or use any recreational drugs for the first 24 hours or while taking pain medications. The medications in your body may have a reaction that can be dangerous. c. Do not make any important decisions or sign any important papers 1. Generally there are no restrictions on your activity after a day or so has gone by, but you may feel a bit fatigued for a few days. 2. After you arrive home you may have a light meal and return to a normal diet as you can tolerate it without feeling sick to your stomach. 3. After surgery, you may feel pain or discomfort. This should be only transient, but if it persists please contact your doctor. 4. If there are any questions regarding the findings of your procedure, please feel free to contact your doctor. 6. If you are unable to contact your doctor with a problem, contact the hospital at [phone]. 7. Continue all your regular medications unless directed otherwise. I understand the above instructions and have no questions. Signature of Patient or Responsible Adult Escort Date/Time Name of Responsible Adult Escort Signature of Nurse Date/Time Activity:: Activity as Tolerated Diet:: As Tolerated
[2022-01-11 10:22] VITALS: BP 134/94; PULSE 78; RESP 16; TEMP 36.4; O2SAT 97
[2022-01-11] MEDS: Lactated Ringers 1,000 ML 80 ML IV (10:36)
[2022-01-11] MEDS: Ondansetron O.D.T. 4 MG TABEF PO (11:06)
== END 2022-01-11 09:55 | disposition home or self-care (01) ==
LOC: SUR 09:54
PROVIDERS: PCP Nurse Practitioner Family; Visit Provider Surgery
DX: Z12.11 Encounter for screening for malignant neoplasm of colon (principal); Z53.9 Procedure and treatment not carried out, unspecified reason; R11.0 Nausea; R73.03 Prediabetes; E78.5 Hyperlipidemia, unspecified; Z85.3 Personal history of malignant neoplasm of breast; J45.909 Unspecified asthma, uncomplicated

== ENCOUNTER 2022-02-24 13:47 | Outpatient (REF) | payer OTHER, SELFPAY ==
--- NOTE | 2022-02-24 13:10 | CER_PTH ---
PATIENT: iMni Huerta LOC: [facility] U#:[id number] AGE/SX: 46/F ROOM: RE02/24/[address]: Maegan Tamayo : 1975 BED: DIS: 02/24/2022 SPEC #: [id number] RECD: 02/24/22 18:17 STATUS: KATE REQ #: [id number] RAKEL: 02/24/22 13:[address]: Magean Tamayo DEPT: Surgical Specimen RECD BY: Janette Hernandez ENTERED: 02/24/22 18:20 SP TYPE: NOEMI HERNANDEZ DR: LUIGI Leyva Tissues: 1 - CERVICAL BIOPSY Procedures: GROSS AND MICRO LEVEL 4 Comments: [id number]
== END 2022-02-24 13:48 | disposition home or self-care (01) ==
LOC: LBN 13:47
PROVIDERS: PCP Nurse Practitioner Family; Visit Provider Obstetrics & Gynecology Gynecology
DX: N93.8 Other specified abnormal uterine and vaginal bleeding (principal); Z79.810 Long term (current) use of selective estrogen receptor modulators (SERMs); N85.8 Other specified noninflammatory disorders of uterus
CPT/HCPCS: 88305

== ENCOUNTER 2022-09-27 01:18 | Outpatient (CLI) | payer OTHER, SELFPAY ==
--- NOTE | 2022-09-27 07:30 | DI.MAMMO_ITS ---
Exam(s) MG MAMMO SCREENING 60 MIN DUR EXAM: MG MAMMO SCREENING 60 MIN DUR CLINICAL HISTORY: breast cancer screening,h/o lt breast ca,z85.3 TECHNIQUE: Mammograms were interpreted according to the usual protocol including computer analysis w [employer] CAD system, tomosynthesis and C-view imaging. COMPARISON: No exams were available for comparison FINDINGS: The breasts are composed of scattered fibroglandular densities, Breast Density category B. No suspicious masses or suspicious microcalcifications are seen. An area of scarring related to prio r lumpectomy is again noted in the upper outer posterior left breast. Skin kenyon are noted in this area. The area of scarring has decreased in density compared with prior exams. No skin thickening or abnormal axillary lymph nodes are seen. There has been no significant change from prior exams. IMPRESSION: BI-RADS Cat 2 - Benign Findings Yearly screening mammography is recommended. Breast Density - Category B, scattered fibroglandular densities. A negative radiographic report should not delay biopsy if a dominant or clinically suspicious mass is present. Up to ten percent of cancers are not identified on mammography. A negative report may reinforce clinical impression. Adenosis and dense breasts may obscure an underlying neoplasm. False positive reports average 6 to 10%. Patient will receive a letter notifying them of these results.
== END 2022-09-27 01:38 ==
LOC: DI 01:18
PROVIDERS: PCP Nurse Practitioner Family; Visit Provider Nurse Practitioner Family
DX: Z12.31 Encounter for screening mammogram for malignant neoplasm of breast (principal); Z85.3 Personal history of malignant neoplasm of breast; Z98.890 Other specified postprocedural states
CPT/HCPCS: 77063; 77067

== ENCOUNTER 2022-10-29 20:54 | Outpatient (REF) | payer OTHER, SELFPAY ==
[2022-10-29 21:32] LABS: HGB 12.4 g/dL (11.2-15.7); MCH 28.3 pg (27.0-33.0); MCHC 33.5 % (32.0-36.0); MCV 85 fL (80-95); MPV 10.7 fL (8.0-11.0); Platelet Count 336 10^3/uL (130-400); RBC 4.38 10^6/uL (3.93-5.22); RDW 11.5 % (11.7-14.6); RDW-SD 35.5 fL
[2022-10-29 21:52] LABS: ALT 25 U/L (14-59); AST 15 U/L (15-37); Albumin 3.6 g/dL (3.4-5.0); Alkaline Phosphatase 55 U/L (46-116); Anion Gap 6.1 mmol/L (3-11); BUN 19 mg/dL (7-18); Bilirubin, Total 0.2 mg/dL (0.2-1.0); CO2 29.9 mmol/L (21.0-32.0); CREATININE 1.2 mg/dL (0.55-1.02); Chloride 103 mmol/L (98-107); Estimated GFR 56.54 (mL/min/1.73m2); Glucose 103 mg/dL (74-106); Potassium 3.9 mmol/L (3.5-5.1); Sodium 139 mmol/L (136-145); TSH (W/Ref FT4) 0.73 uIU/mL (0.36-3.74); Total Protein 7.1 g/dL (6.4-8.2)
== END 2022-10-29 20:55 | disposition home or self-care (01) ==
LOC: LBN 20:54
PROVIDERS: PCP Nurse Practitioner Family; Visit Provider Nurse Practitioner Family
DX: F41.8 Other specified anxiety disorders (principal); E66.8 Other obesity; Z85.3 Personal history of malignant neoplasm of breast
CPT/HCPCS: 80053; 85027; 84443

== ENCOUNTER 2023-02-11 18:31 | Outpatient (REF) | payer OTHER, SELFPAY ==
[2023-02-11 13:10] LABS: Abs Immature Grans 0.01 10^3/uL (0.0-0.06); Absolute Basophil Count 0.05 10^3/uL (0.0-0.2); Absolute Eosinophil Count 0.04 10^3/uL (0.0-0.7); Absolute Lymphocyte Count 2.85 10^3/uL (1.2-3.4); Absolute Monocyte Count 0.54 10^3/uL (0.1-0.8); Absolute Neutrophil Count 2.34 10^3/uL (1.2-6.7); Basophils % 0.9; Eosinophils % 0.7; HCT 37.7 % (36.0-46.0); HGB 12.5 g/dL (11.2-15.7); Immature Grans % 0.2; Lymphocytes % 48.9; MCH 27.8 pg (27.0-33.0); MCHC 33.2 % (32.0-36.0); MCV 84 fL (80-95); MPV 9.6 fL (8.0-11.0); Monocytes % 9.3; Platelet Count 368 10^3/uL (130-400); RDW 11.8 % (11.7-14.6); RDW-SD 35.8 fL; WBC 5.83 10^3/uL (4.4-10.8)
[2023-02-11 13:18] LABS: Anion Gap 7.3 mmol/L (3-11); BUN 18 mg/dL (7-18); CO2 30.7 mmol/L (21.0-32.0); Calcium 9.6 mg/dL (8.5-10.1); Chloride 103 mmol/L (98-107); Estimated GFR 70.36 (mL/min/1.73m2); Glucose 87 mg/dL (74-106); Potassium 4.4 mmol/L (3.5-5.1); Sodium 141 mmol/L (136-145)
== END 2023-02-11 18:32 | disposition home or self-care (01) ==
LOC: LBN 18:31
PROVIDERS: PCP Nurse Practitioner Family; Visit Provider Nurse Practitioner Family
DX: R19.09 Other intra-abdominal and pelvic swelling, mass and lump (principal); N28.9 Disorder of kidney and ureter, unspecified
CPT/HCPCS: 80048; 85025

== ENCOUNTER 2023-05-10 09:15 | Day surgery (SDC) | payer OTHER, SELFPAY ==
--- NOTE | 2023-05-09 20:10 | PDOC.DSDIS_ITS ---
Date of service: 05/10/23 Time of Service: 12:19 Discharge Plan Disposition Patient Disposition: Home Condition: Good Discharge Details Reason For Visit: colon scope Attending Provider: Roula Lundy Primary Care Provider: Zoe Rodriguez Home Meds and New Rx's Prescriptions: No Action cholecalciferol (vitamin D3) 5,000 unit capsule 5,000 unit PO DAILY epinephrine 0.3 mg/0.3 mL auto-injector 0.3 ml IM ONCE PRN (Reason: hypersensitivity reaction) Qty: 2 0RF Patient Comments: pt has never used Rx Instructions: Administer once and immediately call emergency services albuterol sulfate [ProAir HFA] 90 mcg/actuation HFA aerosol inhaler 2 puff Inhalation Q4H PRN PRN (Reason: shortness of breath or wheezing) Qty: 8.5 5RF Patient Comments: 05/10/23 pt reports last used one year ago prochlorperazine maleate [Compazine] 5 mg tablet 5 mg PO QID PRN (Reason: nausea and vomiting) Qty: 10 0RF Patient Comments: 05/10/23 pt reports has never taken (DME) pen needle, diabetic [BD Ultra-Fine Short Pen Needle] 31 gauge x 5/16 needle See Rx Instructions .MEDSUPPLY Qty: 100 4RF Rx Instructions: Use with semaglutide pen daily semaglutide (weight loss) 2.4 mg/0.75 mL pen injector 2.4 mg subcut QWEEK Qty: 9 4RF tamoxifen 20 mg tablet 20 mg PO DAILY evening primrose oil 500 mg capsule 500 mg PO DAILY escitalopram oxalate [Lexapro] 10 mg tablet 10 mg PO DAILY Qty: 90 3RF dextroamphetamine-amphetamine 10 mg tablet 10 mg PO BID MDD 20mg Qty: 56 0RF Rx Instructions: Take 1 tablet twice a day, administer doses at least 4-6 hours apart Discharge Instructions Additional Instructions: [facility] Colonoscopy Post- Op Instructions Instructions for Everyone who is given Anesthesia: For your safety, please do the following for the next twenty-four (24) hours: *Do Not operate a motor vehicle (car, truck, motorcycle, etc.) *Do Not drink alcoholic beverages or use any recreational drugs for the first 24 hours or while taking pain medications. The medications in your body may have a reaction that can be dangerous. *Do Not make any important decisions or sign any important papers. Findings: Diverticula (minor): Make sure you are moving your bowels on a regular basis and you are not straining. If you find you have problems with constipation/straining to move your bowels, then it is recommended you start a fiber supplement such as Metamucil. Follow up: 1. No lifting over 20 pounds or strenuous activity for the first 24 hours after your procedure. After 24 hours there are no restrictions on your activity but you may feel fatigued for a few days. 2. After you arrive home you may have a light meal and return to your normal diet as you can tolerate it without feeling sick to your stomach. 3. You may have a bloated, gaseous feeling in your belly (abdomen) after a colonoscopy. Passing gas and belching will help. Walking or lying down on your left side with your knees flexed may relieve the discomfort. Call the office at [phone] (Office) or [phone] (Hospital) right away if you notice any of the following: a.Vomiting of blood or ?coffee ground stools?. b.Rectal bleeding 1Tbsp, blood clots or continuous bleeding. c.Severe belly (abdominal) pain. d.A hard distended belly (abdomen) and an inability to pass gas. 4. Please don?t expect to have a normal BM (bowel movement) for 2-3 days after your procedure. 5. If there are questions regarding the findings of your procedure, please contact your doctor 6. If you are unable to contact your doctor with a problem, contact the hospital at [phone]. 7. Continue all your regular medications unless directed otherwise. I understand the above instructions and have no questions. Signature of Patient or Adult Escort Name of Responsible Adult Escort Signature of Nurse Date/Time Date of service: 05/10/23 Time of Service: 10:11 Discharge Plan Disposition Patient Disposition: Home Condition: Good Discharge Details Reason For Visit: colon scope Attending Provider: Roula Lundy Primary Care Provider: VALERIE DEMARCO Home Meds and New Rx's Prescriptions: Continued amlodipine 5 mg tablet 5 mg PO DAILY lisinopril 30 mg tablet 30 mg PO DAILY pravastatin 20 mg tablet 20 mg PO DAILY hydrochlorothiazide 12.5 mg tablet 12.5 mg PO DAILY vit A and D3 in cod liver oil [cod liver oil] 1 EACH capsule 1 ea PO DAILY Discontinued bisacodyl [Dulcolax (bisacodyl)] 5 mg tablet,delayed release (DR/EC) 5 mg PO ONCE Qty: 4 0RF Rx Instructions: Take per colonoscopy instructions provided by ordering providers office polyethylene glycol 3350 17 gram/dose powder 17 g PO ONCE Qty: 238 0RF Rx Instructions: Take per colonoscopy instructions provided by ordering providers office Discharge Instructions Additional Instructions: [facility] Colonoscopy Post-Op Instructions Instructions for Everyone who is given Anesthesia: For your safety, please do the following for the next twenty-four (24) hours: *Do Not operate a motor vehicle (car, truck, motorcycle, etc.) *Do Not drink alcoholic beverages or use any recreational drugs for the first 24 hours or while taking pain medications. The medications in your body may have a reaction that can be dangerous. *Do Not make any important decisions or sign any important papers. Findings: polyps and diverticula Follow up: My office will send you a letter in 2 to 3 weeks time with the results of the polyps and when we want you to repeat your colonoscopy. 1. No lifting over 20 pounds or strenuous activity for the first 24 hours after your procedure. After 24 hours there are no restrictions on your activity but you may feel fatigued for a few days. 2. After you arrive home you may have a light meal and return to your normal diet as you can tolerate it without feeling sick to your stomach. 3. You may have a bloated, gaseous feeling in your belly (abdomen) after a colonoscopy. Passing gas and belching will help. Walking or lying down on your left side with your knees flexed may relieve the discomfort. Call the office at [phone] (Office) or [phone] (Hospital) right away if you notice any of the following: a.Vomiting of blood or ?coffee ground stools?. b.Rectal bleeding 1Tbsp, blood clots or continuous bleeding. c.Severe belly (abdominal) pain. d.A hard distended belly (abdomen) and an inability to pass gas. 4. Please don?t expect to have a normal BM (bowel movement) for 2-3 days after your procedure. 5. If there are questions regarding the findings of your procedure, please contact your doctor 6. If you are unable to contact your doctor with a problem, contact the hospital at [phone]. 7. Continue all your regular medications unless directed otherwise. I understand the above instructions and have no questions. Signature of Patient or Adult Escort Name of Responsible Adult Escort Signature of Nurse Date/Time DIVERTICULAR DISEASE OVERVIEW???A diverticulum is a pouch-like structure that can form through points of weakness in the muscular wall of the colon (ie, at points where blood vessels pass through the wall). Diverticulosis affects men and women equally. The risk of diverticular disease increases with age. It occurs throughout the world but is seen more commonly in developed countries. WHAT IS DIVERTICULAR DISEASE? Diverticulosis???Diverticulosis merely describes the presence of diverticula. Diverticulosis is often found during a test done for other reasons, such as flexible sigmoidoscopy, colonoscopy, or barium enema. Most people with diverticulosis have no symptoms and will remain symptom free for the rest of their lives. A person with diverticulosis may have diverticulitis, or diverticular bleeding. Diverticulitis???Inflammation of a diverticulum (diverticulitis) occurs when the re is thinning and breakdown of the diverticular wall. This may be caused by increased pressure within the colon or by hardened particles of stool, which can become lodged within the diverticulum. The symptoms of diverticulitis depend upon the degree of inflammation present. The most common symptom is pain in the left lower abdomen. Other symptoms can include nausea and vomiting, constipation, diarrhea, and urinary symptoms such as pain or burning when urinating or the frequent need to urinate. Diverticulitis is divided into simple and complicated forms. ?Simple diverticulitis, which accounts for 75 percent of cases, is not associated with complications and typically responds to medical treatment without surgery. ?Complicated diverticulitis occurs in 25 percent of cases and usually requires surgery. Complications associated with diverticulitis can include the following: ?Abscess ? a localized collection of pus ?Fistula ? an abnormal tract between two areas that are not normally connected (eg, bowel and bladder) ?Obstruction ? a blockage of the colon ?Peritonitis ? infection involving the space around the abdominal organ ?Sepsis ? overwhelming body-wide infection that can lead to failure of multiple organs Diverticular bleeding???Diverticular bleeding occurs when a small artery located within a diverticulum is eroded and bleeds into the colon. Diverticular bleeding usually causes painless bleeding from the rectum. In approximately 50 percent of cases, the person will see maroon or bright red blood with bowel movements. Is bleeding with a bowel movement normal?It is not normal to see blood in a bowel movement; this can be a sign of several conditions, most of which are not serious (eg, hemorrhoids) but some of which are serious and require immediate treatment. Anyone who sees blood after a bowel movement should consult with their healthcare provider to determine if further testing or evaluation is needed. DIVERTICULOSIS AND DIVERTICULITIS DIAGNOSIS???Diverticulosis is often found during tests performed for other reasons. ?Barium?enema ? This is an x-ray study that uses barium in an enema to view the outline of the lower intestinal tract. This is an older test and has been largely replaced by computed tomography (CT) scan. ?Flexible sigmoidoscopy ? This is an examination of the inside of the sigmoid colon with a thin, flexible tube that contains a camera. ?Colonoscopy ? This is an examination of the inside of the entire colon. ?CT scan ? A CT scan is often used to diagnose diverticulitis and its complications. If diverticulitis (not just diverticulosis) is suspected, the above three tests should not be used because of the risk of perforation. TREATMENT Diverticulosis???People with diverticulosis who do not have symptoms do not require treatment. However, most clinicians recommend increasing fiber in the diet, which can help to bulk the stools and possibly prevent the development of new diverticula, diverticulitis, or diverticular bleeding. Fiber is not proven to prevent these conditions in all patients but may help to control recurrent episodes in some. Increase fiber???Fruits and vegetables are a good source of fiber.? Fiber content of packaged foods can be calculated by reading the nutrition label. Seeds and nuts???Patients with diverticular disease have historically been advised to avoid whole pieces of fiber (such as seeds, corn, and nuts) because of concern that these foods could cause an episode of diverticulitis. However, this belief is completely unproven. We do not suggest that patients with diverticulosis avoid seeds, corn, or nuts. Diverticulitis???Treatment of diverticulitis depends upon how severe your symptoms are. Home treatment???If you have mild symptoms of diverticulitis (mild abdominal pain, usually left lower abdomen), you can be treated at home with a clear liquid diet and oral antibiotics. However, if you develop one or more of the following signs or symptoms, you should seek immediate medical attention: ?Temperature >100.1?F (38?C) ?Worsening or severe abdominal pain ?An inability to tolerate fluids Hospital treatment???If you have moderate to severe symptoms, you may be hospitalized for treatment. During this time, you are not allowed to eat or drink; antibiotics and fluids are given into a vein. If you develop an abscess of the colon, you may require drainage of the abscess (usually performed by placing a drainage tube across the abdominal wall) or by surgically opening the affected area. Surgery???If you develop a generalized infection in the abdomen (peritonitis), you will usually require an emergency operation. A two-part operation may be necessary in some cases. ?The first operation involves removal of the diseased colon and creation of a colostomy. A colostomy is an opening between the colon and the skin, where a bag is attached to collect waste from the intestine. The lower end of the colon is t emporarily sewed closed to allow it to heal. ?Approximately three to six months later, a second operation is performed to reconnect the two parts of the colon and close the opening in the skin. You are then able to empty your bowels through the rectum. Sometimes patients require up to a year to recover from the first operation, depending on how sick they were. In non-emergency situations, the diseased area of the colon can be removed and the two ends of the colon can be reconnected in one operation, without the need for a colostomy. Surgery versus medical therapy???An operation to remove the diseased area of the colon may be necessary if you do not improve with medical therapy. After an episode of uncomplicated diverticulitis, elective surgery is generally not req uired as the risk of another attack or requiring emergency surgery is low. However, patients with persistent symptoms attributable to diverticulitis, a history of complicated diverticulitis, or a compromised immune system should be evaluated for possible surgery to prevent another attack. In such patients, another attack has been associated with a higher risk of complications or . Of course, the decision will also depend in part upon your other medical conditions and ability to undergo surgery. In many cases, an elective operation can be performed laparoscopically, using small incisions, rather than the typical vertical (up and down) abdominal incision. Laparoscopic surgery usually allows you to recover more quickly and shortens the hospital stay. After diverticulitis resolves???After an episode of diverticulitis resolves, if you have not had a recent colonoscopy, the entire length of the colon should be evaluated to determine the extent of disease and to rule out the presence of abnormal lesions such as polyps or cancer. Recommended tests include colonoscopy, barium enema and sigmoidoscopy, or CT colonography. Diverticular bleeding???Most cases of diverticular bleeding resolve on their own. However, some people will need further testing or treatment to stop bleeding, which may include a colonoscopy, angiography (a treatment that blocks off the bleeding artery), bleeding scan, or surgery. DIVERTICULAR DISEASE PROGNOSIS Diverticulosis???Over time, diverticulosis may cause no problems or it may cause episodes of bleeding and/or diverticulitis. Approximately 15 to 25 percent of people with diverticulosis will develop diverticulitis, while 5 to 15 percent will develop diverticular bleeding. Diverticulitis???Approximately 85 percent of people with uncomplicated diverticulitis will respond to medical treatment, while approximately 15 percent of patients will need an operation. After successful treatment for a first attack of diverticulitis, one-third of patients will remain asymptomatic, one- third will have episodic cramps without diverticulitis, and one-third will go on to have a second attack of diverticulitis. The prognosis tends to remain similar following a second attack of diverticulitis. Only 10 percent of people remain symptom-free after a second att ack. Subsequent attacks tend to be of similar severity, not increasing in severity as previously believed. High Fiber Diet What is Dietary Fiber? All fiber comes from plants, bushes, charity or trees.? Of course, the ones that we eat provide us with fruits, vegetables and grains.? There are many different types of fiber but the three that are most important to the health of the body are: Insoluble Fiber This fiber does not dissolve in water, nor is it fermented by the bacteria residing in the colon.? Rather, it retains water and in so doing, helps to promote a larger, bulkier and more regular bowel activity.? This, in turn, may be important in preventing disorder such as diverticulosis and hemorrhoids, and in sweeping out certain toxins and cancer causing carcinogens.? Sources of insoluble fiber are: ? whole grain wheat and other whole grains ? corn bran, including popcorn, unflavored and unsweetened ? nuts and seeds ? potatoes and the skins from most fruits from trees such as apples, bananas and avocados ? many green vegetables such as green beans, zucchini, celery and cauliflower ? some fruit plants such as tomatoes and kiwi Soluble Fiber These fibers are fermented or used by the colon bacteria as a food source or nourishment.? When these good bacteria grow and thrive, many health benefits occur in both the colon and the body.? Soluble fiber is present in some degree in most edible plant foods, but the ones with the most soluble fiber include: ? legumes such as peas and most beans, including soybeans ? oats, rye and barley ? many fruits such as berries, plums, apples bananas and pears ? certain vegetables such as broccoli and carrots ? most root vegetables ? psyllium husk supplement products Benefits of a High Fiber Diet The health benefits of a high fiber diet, consumed on a regular basis and reaching recommended amounts (below), are now fairly well-defined. There are some additional benefits in the early research stage with the prebiotic soluble fibers. What is now known regarding a high fiber diet include: Bowel Regularity A high fiber diet promotes regularity with a softer, bulkier and regular stool pattern. This decreases the chance of hemorrhoids, diverticulosis and perhaps colon cancer. Cholesterol and Reduced Triglycerides The soluble fibers are the ones that will reduce cholesterol levels when used on a regular basis. Psyllium husk and prebiotic soluble fiber will also reduce cholesterol. They may also reduce the incidence of coronary heart disease. Oats, flax seeds and legumes or beans are the recommended fibers. Colon Polyps and Cancer It is still not certain if a high fiber diet helps prevent colon cancer. Considerable research suggests that this may occur. Certainly it makes sense to increase regularity and so speed the movement of cancer causing carcinogens through the bowel. In addition, reducing a heavy meat diet reduces the bile flow from the liver in a favorable way. This, too, reduces the amount of carcinogens that reach and are manufactured in the colon. Finally, a high fiber diet, including prebiotic soluble fiber, increases the integrity and health of the wall of the colon. The risk of cancer may be reduced. Colon Wall Integrity A high fiber diet changes the bacterial makeup of the colon toward a more favorable balance. For instance, it is known that those people with obesity, diabetes type 2 and inflammatory bowel disease have a predominance of bad bacteria in the colon. This, in turn, may render the bowel wall weak and allow bacteria and, indeed, even toxins to seep through. A high fiber diet with a modest reduction in animal and meat products may return the bacterial makeup to a more positive balance. This, in particular, has been seen when the soluble fiber prebiotics are added to the diet. Blood Sugar Soluble fiber such as in legumes (beans), oats and in prebiotic fibers slows the absorption of blood sugar and so helps regulate the sugar in the blood. Insoluble fiber on a regular basis is associated with reduced risk of type 2 diabetes. Weight Loss High fiber diets are more filling and give a sense of fullness sooner than an animal and meat based diet does. In addition, the soluble prebiotic fibers have been shown to turn off the hunger hormones produced in the wall of the gut and to increase the hormones that give a sense of fullness. Those hormones are made in the wall of the gut. New medical research has shown that the bacterial makeup in the colon in overweight people is abnormal to the extent that they manufacture and absorb almost twice the number of calories through the colon wall as do normals. Prebiotic fibers (below) will help change this hormonal balancein a favorable way. Bacteria and the Function of the Colon The colon finishes the digestive process. Hopefully, the waste products move through in a nice regular manner. Insoluble fibers help this process by retaining water and so producing a bulkier, softer stool, which is easy to pass. The additional role of the colon is to provide a home for an enormous number of micro-organisms, mostly bacteria. Recent research has shown that there are over 1,000 species of bacteria with a total bacterial count ten times the number of cells in the body. These bacteria play a major role in keeping the colon wall itself healthy. In addition, these good bacteria produce a very strong immune system for the body. They significantly increase calcium absorption and bone density. They provide other documented benefits. It is the soluble fibers in the diet that are so effective in stimulating the growth of good colon bacteria. How Much is Enough? The amount of fiber in food is measured in grams.? National nutritional a uthorities recommend the following amounts of dietary fiber daily. Under Age 50? Over Age 50 Men? 38 grams? 30 grams Women??? 25 grams? 21 grams For a week or so, it is best to tally the amount of fiber you are consuming.? Boxed and packaged foods will have the amount of fiber per serving on the nutrition label. Which Fibers and Which Foods are Best? As noted, healthy fiber is only found in plants. The three major categories are whole grains, fruits and vegetables. Whole Grains Wheat, oats, barley, wild or brown rice, amaranth, buckwheat, bulgur, corn, millet, quinoa, rye, sorghum, teff and triticals. By far, wheat, oats and wild or brown rice are most common. Always buy whole grain products. White bread, baked goods and rolls almost always are made from wheat flour. Wheat flour is white because most of the fiber, vitamins and other nutrients have been removed. Try not buy enriched grains. What this means is that simple white flour has had vitamins added to it by the cutting and creasing press operator. The word, enriched, implies a good and healthy product. On the contrary, enriched means that most of the fiber has been removed and a few vitamins added. Fruits Fruits come from trees such as apple and pear or from bushes or charity. You should eat a wide variety of fruits, preferably with every meal. In many cases, the skin of a fruit such as apple will contain much of the insoluble fiber while the pulp contains most of the soluble fiber. To the extent possible, buy organic fruits as these will have little or no pesticides. Always wash fruit. Vegetables Eat a wide variety of vegetables. They should be a mainstay of lunch and dinners. Frozen vegetables retain as much nutrition and fiber as fresh vegetables. As with fruit, try to buy organic to reduce any residual pesticide ingestion. Wash fresh vegetables thoroughly. Cruciferous vegetables such as broccoli, [place] sprouts and cauliflower contain certain chemicals such as sulforaphane. This substance has very strong anti-cancer properties and should be eaten frequently. Legumes, Beans, Peas and Soybeans These vegetables have plenty of soluble fiber and should be part of a varied vegetable intake. Beans, in particular, contain a certain type of fiber that may lead to harmless gas or bloating. Nuts and Seeds These are rich sources of fiber and are a good substitute for sweets such as candies and baked sweet goods. While nuts and seeds are rich in fiber, they also contain vegetable fat and so can and do add calories. Read the Labels As noted, fresh and frozen foods are usually better.? They have good nutrition and few, if any, chemicals added to them.? When buying packaged foods and, in particular grains, look for three things: ? The first word on the label should be whole, such as whole wheat or whole grain. ? Check out the calories and the amount of fiber in a serving. ? How many and what other additives or chemicals are added.? Fewer is always better.? Do you know what each additive does?? Some are added not for the benefit of the assistant buyer but rather for manufacturers.? These could and do include sugar, artificial flavor, chemicals to prevent oxidation and spoilage, emulsifiers to blend the product.? You have to be a theatre arts professor. Fiber Facts, Nuggets and Pearls ? For breakfast you can easily get the day started well by using a high fiber, whole grain cereal.? Check the labels.? Add fruit such as blueberries and bananas.? If you are an egg eater, use whole wheat or grain toast.? Adding wheat germ gives you a good fiber kick. ? Always use whole grain or wheat with rolls and sandwiches.? Does your fast food store not have them?? Perhaps you look elsewhere.? Eating an occasional black pradhan or veggie burger provides variety. ? Snacks should consist of fruit and/or nuts.? While nuts are loaded with fiber, they are an energy rich food, meaning they have a lot of calories in a small packet. ? Fruit juices should contain pulp.? Clear juices such as clear orange, pear or apple juice contain little fiber and have a lot of fructose.? Prune juice is usually high in fiber. ? Homemade soups ? adding fresh or frozen vegetables to a chicken or vegetable stock is a good way to start homemade soup. ? Salads ? adding cooked and then chilled vegetables provide great flavoring to almost any salad.? Remember, a horn salad has lots of cooked corn in it.? Small slices of apples or oranges and nuts such as chopped walnuts or sliced almonds always adds taste, variety and fiber to almost any salad. ? Fruit ? Try to eat fruit of some type with almost every meal. ? Rethink how you place the various foods on your dinner plate.? Reducing the portions of the meat or animal food portion to the side with equal or more portions of vegetables, legumes and fruits portion always allows for more fiber.? There was never anything magic about making the meat or animal food portion the main part of the dinner plate.? Eating from smaller plates can, over time, trick your mind and termite treater helper habit of using a dinner plate.? Again, there is nothing magic in an 11, 12, or 13 inch dinner plate. Fiber Supplements There are a variety of fiber supplements available on the food or pharmacy shelves. Psyllium This soluble plant fiber has been used in [place] for over 2,000 years. It is a soluble fiber with mucilage in it. This acts to retain a lot of water and also is fermented by colon bacteria. When 7 grams a day are used, it does lower cholesterol. Metamucil in various forms is psyllium. Methyl Cellulose All the cellulose products come from finely ground wood chips which are then treated in a variety of ways such as boiling in acids. Methyl cellulose is an insoluble fiber which does dissolve in water. It is also an emulsifier, meaning it blends oils and water. Citrucel is methyl cellulose (MC). MC may not be appropriate for Crohn?s disease or ulcerative colitis as several medical studies have shown that certain emulsifiers dissolve the mucous lining of the colon in animals prone to Crohn?s disease. This then allows bacteria to invade the underlying tissue. Fiber and Gas Everyone has intestinal gas and that is a good thing.? It means that bacteria, hopefully the good ones, are thriving.? The normal amount of flatus passed each day depends on sex and what is eaten.? The normal number of flatus is 10-20 times a day.? When the bacteria that make intestinal gases are growing, it also means that other good bacteria are using the same fibers to grow and produce multiple health benefits, including the production of healthy short-chain fatty acids.? These substances are produced quietly in the colon and produce many health-related outcomes. Soluble fiber should always be used in a gradual manner.? If too much is consumed at any one time, then excess, but harmless, intestinal gas can occur.? People with irritable bowel syndrome are particularly prone to bloating and mild cramping.? In this instance, soluble fiber in the diet or supplement should be used in small doses and increased gradually. Finally, prebiotic fibers tend to cause the production of short-chain fatty acids which acidify the colon.? This, in turn, reduces or stops the growth of bacteria that make the smelly hydrogen sulfide gases that produce noxious flatus.? People who consume many vegetables with prebiotics or take a prebiotic fiber supplement often have non-odoriferous flatus. Fiber and Irritable Bowel Syndrome Irritable bowel syndrome (IBS) is one of the most common disorders of the lower digestive tract.? The symptoms of IBS can be quite varied.? They can be a mix of several symptoms such as constipation, diarrhea, crampy abdominal discomfort, bloating and gas.? An attack of IBS can be triggered by emotional tension and anxiety, poor dietary habits and certain medications.? It is now known that infections in the intestine can lead to long-term IBS symptoms.? Increased amounts of fiber in the diet can help relieve the symptoms of irritable bowel syndrome by producing soft, bulky stools.? This helps to normalize the time it takes for the stool to pass through the colon.? Recent medical research with newer techniques has shown some surprising and dramatic findings for IBS patients.? Specifically, there is a very significant and abnormal shift of bacteria from those that provide health benefits to those bad bacteria that we really do not want in the gut.? The technical name for this bad group of bacteria is called Firmicutes.? Along with this abnormal bacterial collection, there is a smoldering low-grade inflammation in the gut wall that may contribute to symptoms.? The goal for IBS patients should be to gradually increase the soluble dietary fibers in the diet so as to promote the growth of good bacteria and so suppress the bad ones along with the associated inflammation. IBS patients need to be careful of the amount of soluble fiber they consume.? The reason for this is that, while the good colon bacteria thrive on these fibers and produce health benefits, other gas-forming bacteria may generate excessive but harmless gas and subsequent bloating.? Thus, soluble plant fibers or a dietary prebiotic supplement should be taken in small initial doses and then gradually increased to tolerance. Fiber and Colon Polyps/Cancer Colon cancer is a major health problem. This disease is most common in Western cultures. It is not seen very often in rural cultures where the diet is mostly plant based. Usually, colon cancer starts out as a colon polyp, a benign mushroom-shaped growth. In time it grows, and in some people it becomes cancerous. Colon cancer is usually always curable if polyps are removed when found or if surgery is performed at an early stage. It is now known that people can inherit the risk of developing colon cancer, but diet is important, too. As noted, there is a very low rate of colon cancer in residents of countries where grains are unprocessed and retain their fiber. It seems that in the [place] world, cancer-containing agents (carcinogens) remain in contact with the colon wall for a longer time and in higher concentrations. So, a large bulky stool may act to dilute these carcinogens by moving them through the bowel more quickly. Less carcinogenic exposure to the colon may mean fewer colon polyps and less cancer. A very current review of the entire world?s literature on the effect of fiber on colon polyps and cancer prevention has shown rather clearly that for every 10 grams of fiber added to the diet, there is a 10% reduction in incidence of colon cancer. So the recommended 30 gram fiber diet would result in a 30% less chance of getting these tumors. There are also substances produced in the colon by the good bacteria that seem to retard certain pre-cancer factors from developing. They are called short- chain fatty acids (SCFA). See above for description of SCFAs. A high fiber diet increases these substances. So, the combination of dietary fiber and the production of short-chain fatty acids have a clear health benefit. Fiber and Diverticulosis Prolonged, vigorous contraction of the colon over a long period of time may result in diverticulosis.? This increased pressure causes small and, eventually, larger ballooning pockets to form.? These pockets by themselves cause no problem.? However, sometimes they become infected (diverticulitis) or even break open (perforate) causing infection or inflammation within the abdomen (peritonitis).? A high fiber diet increases the bulk in the stool and thereby reduces the pressure within the colon.? By so doing, the formation of pockets may be reduced or possibly even stopped. In the past, many physicians were fearful that seeds as in tomatoes, nuts or berries were harmful and could get inside these pockets and rattle around, causing damage. We now know that this has never been the case and that these foods contain lots of fiber and are actually beneficial for diverticulosis patients. Certain bulking agents such as psyllium are traditional types of bulk producing supplements.? Psyllium is a soluble fiber.? Combining it with insoluble fiber as in wheat bran or corn bran (no gluten) can enhance this bulking effect even more.? A product containing a prebiotic, psyllium and wheat bran is probably a very good combination for bowel regularity. Prebiotin [email or web address].prebiotin.[email or web address]/ Regularity/Diverticulosis is one such product. Starting a Fiber Supplement ?When consumed at recommended levels,?dietary fiber https://www.[facility].org/healthy-lifestyle/ggoomhajd-bwe-rrtcbbv-eating/in-dep th/fiber/art-[email or web address]?mc_id=us&utm_source=newsnetwork&utm_medium=l&utm_content=c onte nt&utm_campaign=[facility]&wander=[facility]&placementsite=yocha dehe&zaanu=393582 ?is widely recognized to have health benefits, including relief of?constipation https://w stan.[email or web address]/diseases-conditions/constipation/symptoms-causes/[email or web address]? mc_id=us&utm_source=newsnetwork&utm_medium=l&utm_content=content&utm_campaign=[facility]&wander=[facility]&placementsite=yocha dehe&hgzhu=026511 . Adult women 50 and younger should consume at least 25 grams of fiber a day. Women 51 and older should have at least 21 grams a day. Adult men need at least 38 grams of fiber a day if they are younger than 50 and at least 30 grams of fiber a day if they are 51 and older. Ninety percent of the [place] population consumes far below those recommendations, averaging only 15 grams of daily fiber. Fiber-rich foods include fruits, vegetables, whole grains and legumes. Many cereals, such as bran flakes, are good sources of fiber. Although fiber supplements can fill the daily fiber gap, they usually have only one type of fiber, rather than a variety of fibers and micronutrients, and they may not provide all the health benefits associated with fiber in food. Therefore, boost your fiber intake in your diet first by eating a wide variety of high-fiber foods. If you still can?t get enough fiber to meet the daily recommendation, consider using a supplement. Many fiber supplements can be used regularly custodial. Fiber is classified as soluble or insoluble. Soluble fibers are more fermentable and may cause gas. Insoluble fibers move through the digestive system largely intact, and that can increase stool bulk. Most fiber supplements are exclusively soluble or insoluble fiber. For example, FiberCon (calcium polycarbophil) and Benefiber (wheat dextrin) are mainly soluble fiber. They tend to cause more bloating and flatulence. Citrucel (methylcellulose) is mainly insoluble fibers that are nonfermentable, so it?s less likely to contribute to bloating and gas. Psyllium husk (Metamucil and Konsyl) is rich in both soluble and insoluble fiber. Generally, fiber supplements with mainly insoluble fiber may be a better option for constipation. Before taking a fiber supplement, ask your health care provider or pharmacist to review your medications. Fiber supplements can decrease the absorption of certain medications, including drugs that treat thyroid disorders,?depression https://www.[facility].org/diseases-conditions/depression/symptoms-causes/[facility]-20 533980?mc_id=us&utm_source=newsnetwork&utm_medium=l&utm_content=content&utm_camp aign=[facility]&wander=[facility]&placementsite=yocha dehe&dnecd=363901 ,?diabetes https://www.[email or web address]/diseases-conditions/diabetes/symptoms-causes/sy 1444?mc_id=us& utm_source=newsnetwork&utm_medium=l&utm_content=content&utm_campaign=mayoclinic& wander=[facility]&placementsite=yocha dehe&lgnjn=875480 ,?high cholesterol https://www.[email or web address]/diseases-conditions/otkl-nztem-stuquryzgup/symptoms-causes/[email or web address] 0?mc_id=us&utm_source=newsnetwork&utm_medium=l&utm_content=content&utm_campaign= mayoclinic&wander=[facility]&placementsite=yocha dehe&aggkr=161702 ,?seizures https://www.[facility].org/diseases-conditions/seizure/symptoms-causes/ 711?mc_id=us&utm_source=newsnetwork&utm_medium=l&utm_c ontent=content&utm_campaign=mayoclinic&wander=[facility]&placementsite=yocha dehe&cau hf=361535 ?and various heart ailments. Even common medications such as aspirin, ibuprofen and penicillin can be affected by an increase in fiber. You may take your medications one hour before or two hours after eating fiber to minimize the interaction. Some fiber supplements may not be appropriate for people with certain medical conditions. For example, if you have celiac disease, you may need to stay away from fiber products derived from wheat. If you have diabetes, you may need to use a flavorless formula to avoid extra sugar. Consult your health care provider for guidance about the appropriate fiber supplement. Go slow as you begin fiber therapy. Fiber supplements may cause abdominal bloating, cramping and flatulence, especially if you start at a high dose. Begin with a low dose, gradually increasing the amount of fiber. Don?t add more than 50 grams of fiber in a supplement per day, as that may affect how your body absorbs nutrients. Your health care provider can help determine what?s right for you. Drinking plenty of water and exercising regularly can help ease constipation, too. If increasing fiber doesn?t improve your symptoms, see your health care provider. Constipation can be a symptom of various underlying medical disorders, such as pelvic floor muscle dysfunction, slow gastrointestinal motility, anatomical abnormalities or endocrine dysfunction that may require different treatment.? Stand Alone Forms: Anesthesia Discharge Inst., Press Ganey (DSU) Activity:: see above Diet:: see above Discharge Orders Discharge Orders: Discharge Order (Routine); Ordered 05/10/23 Ordered By: Roula Lundy Stand Alone Forms: Anesthesia Discharge Inst., Press Ganey (DSU) Activity:: see above Diet:: see above Discharge Orders Discharge Orders: Discharge Order (Routine); Ordered 05/10/23 Ordered By: Roula Lundy DS: Diagnosis Discharge Diagnosis (1) Family history of breast cancer in mother: Status: Acute (2) History of left breast cancer: Status: Chronic (3) Attention deficit disorder: Status: Chronic (4) Asthma: Status: Chronic (5) Prediabetes: (6) Hyperlipidemia: (7) Cigarette smoker: (8) Screening for malignant neoplasm of colon performed: Status: Acute Asessment and Plan: The patient is seen and examined after their colonoscopy.? The patient has been able to pass gas.? They are not having abdominal pain.? They have been able to tolerate liquids and a snack.? They do not have any nausea or vomiting.? They are not having any chest pain or shortness of breath.??? They are not having any rectal bleeding. Their vital signs have been stable-see nursing notes. We discussed findings during their colonoscopy, and any biopsies that were done/polyps that were removed. The patient will be sent a letter with any biopsy results, and when to repeat the colonoscopy.-see discharge instructions. Patient was given explicit instructions to follow-up regarding colonoscopy-refer to discharge instructions.? We reviewed resumption of medications. Patient verbalized understanding and discharged in stable and satisfactory condition- See nursing notes. (9) Diverticula of colon: Status: Acute
--- NOTE | 2023-05-09 20:13 | W.COLOREPORT ---
Date of service: 05/10/23 Time of Service: 11:10 Colonoscopy Report Date of procedure: 05/10/23 Pre-op diagnosis general: crc screening Post-op diagnosis procedure note: other (diverticula ) Surgeon: Roula Lundy Anesthesia Type: General:No Airway Estimated blood loss (mL): 0 Pathology: none sent Complications: None Disposition: same day Prep: Miralax/Dulcolax Retraction Time: 9 Procedure Description: After informed consent was obtained the patient was taken to the procedure room and placed in a left decubitous position. Monitors were applied and a time out was done. The patients name, date of , procedure, allergies to medications and metal in their body was reviewed. The patient was then sedated. Once sedated and comfortable a rectal exam was done. External exam was normal. Internal exam revealed a normal sphincter tone and no palpable masses. The scope was then introduced and retrofelexed. No internal hemorrhoids were identified. The scope was then advanced to the cecum difficulty. The TI and appendiceal orifice were identified. The prep was BBPS 3 in all segments for a total of 9. The scope was then slowly retracted over minutes back into the rectum. No polyps are visualized today. She has a few small scattered diverticula in the sigmoid and colon. There is no signs of active bleeding or infection. The Mucosa is pink and healthy with a normal vascular pattern.. The scope was removed and the patient was woken up and taken back to Same day surgery in stable condition. The patient tolerated the procedure well and there were no immediate complications. Follow up: The patient should follow up in 10 years unless they develop changes in bowel habits or other new gastrointestinal complaints.
[2023-05-10 09:32] VITALS: BP 123/93; PULSE 89; RESP 16; TEMP 36.3; O2SAT 98
[2023-05-10] MEDS: Lactated Ringers 1,000 ML 80 ML IV (09:56)
--- NOTE | 2023-05-10 09:59 | ANES.PREOP_ITS ---
General Info Date of Service Date Performed: 05/10/23 Height: 5 ft 4.5 in Weight: 77.8 kg Body Mass Index (BMI): 29.0 Surgical Procedure: Operation Date: 05/10/23 10:05 Proposed Procedure Side Surgeon p Colonoscopy, possible polypectomy Roula Lundy DO Actual Procedure Side Surgeon p Colonoscopy, possible polypectomy Not Applicable Roula Lundy, Meds Allergies and Home Medications Allergies Allergy/AdvReac Type Severity Reaction Status Date / Time No Known Allergies Allergy Verified 05/10/23 09:38 Home Medication Medication Instructions Recorded cholecalciferol (vitamin D3) 125 5,000 unit PO DAILY 03/22/18 mcg (5,000 unit) capsule epinephrine 0.3 mg/0.3 mL 0.3 ml IM ONCE PRN 09/07/19 injection, auto-injector hypersensitivity reaction #2 ea albuterol sulfate 90 mcg/actuation 2 puff inhalation Q4H PRN PRN 06/30/21 aerosol inhaler (ProAir HFA) shortness of breath or wheezing #8.5 grams evening primrose oil 500 mg capsule 500 mg PO DAILY 09/16/21 pen needle, diabetic 31 gauge x #100 ea 10/14/21/16 (BD Ultra-Fine Short Pen Needle) tamoxifen 20 mg tablet 20 mg PO DAILY 12/14/21 Lexapro 10 mg tablet (escitalopram 10 mg PO DAILY #90 tabs 08/28/22 oxalate) semaglutide (weight loss) 2.4 2.4 mg (0.75 mL) subcut QWEEK #9 mL 09/15/22 mg/0.75 mL subcutaneous pen injector dextroamphetamine-amphetamine 10 10 mg PO BID #56 tabs 02/25/23 mg tablet prochlorperazine maleate 5 mg 5 mg PO QID PRN nausea and 04/11/23 tablet (Compazine) vomiting #10 tabs Current Visit Medications: Current Medications Generic Name Dose Route Start Last Admin Trade Name Freq PRN Reason Stop Dose Admin Hyoscyamine Sulfate 0.125 mg 05/10/23 01:02 Hyoscyamine 0.125 Mg Sl/Oral/Chew SL 06/09/23 01:01 DIRECTED PRN Ringer's Solution 1,000 mls @ 80 mls/hr 05/10/23 06:00 05/10/23 09:56 IV 06/08/23 23:59 80 mls/hr INFUSION TIESHA Administration IV Miscellaneous Supplies 1 each 05/10/23 06:00 Iv Access IV 06/08/23 23:59 DIRECTED TIESHA Ondansetron HCl 4 mg 05/10/23 01:02 Ondansetron 4 Mg/2 Ml Vial IVP 06/09/23 01:01 Q4H PRN PRN Nausea / Vomiting Sodium Chloride 0 ml 05/10/23 06:00 Normal Saline Flush 10 Ml Syr IV 06/08/23 23:59 PRN PRN Sodium Chloride 0 ml 05/10/23 06:00 Normal Saline 10 Ml Vial IJ 06/08/23 23:59 DIRECTED PRN Sterile Water 0 ml 05/10/23 06:00 Water,Injection,Sterile 10 Ml Vial IJ 06/08/23 23:59 DIRECTED PRN PFSH Active Problems Active Problems: Problem Status Onset Code Screening for malignant neoplasm of colon performed Z12.11 Family history of breast cancer in mother Z80.3 Shingles ~03/2023 B02.9 History of left breast cancer ~12/2019 Z85.3 Attention deficit disorder F98.8 Asthma J45.909 Generalized anxiety disorder F41.1 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 EMBx: Benign. Cigarette smoker former- quit 10+ yrs ago COVID-19 virus infection Symptom onset 08/10/20, tested positive 08/11/2011/2021 Hyperlipidemia Malignant neoplasm of left breast (12/2019) 2020. DCIS, LCIS s/p partial mastectomy, radiation, Tamoxifen. followed by [facility] [place] [facility] Perimenopausal symptoms Prediabetes Medical History Comments:: pt feels nasueous in pre-op. Surgical History Surgical History History of bilateral tubal ligation (~2012) History of endometrial biopsy performed today. I will notify pt of results when available. If nl will manage AUB expectantly. Status post partial mastectomy of left breast (02/15/20) Tobacco Smoking/Tobacco Use Status: Former Tobacco Use Passive smoking exposure: Yes Second hand exposure: Yes Alcohol Alcohol Intake: former Year quit: 2017 Substance Use Substance use: Never Substance use type: does not use Prental History History 2 Para 2 Hx # Term Pregnancies Multiple births Hx # Pregnancies Ectopic pregnancies AB induced Hx Number of Living Children 2 AB spontaneous Vital Signs and Lab Results Vital Signs Most Recent Vital Signs in EMR: Most Recent Vital Signs Temp Pulse Resp BP Pulse Ox 36.3 C L 89 16 123/93 H 98 05/10/23 09:32 05/10/23 09:32 05/10/23 09:32 05/10/23 09:32 05/10/23 09:32 Lab Results Blood Type / Crossmatch: No Data to Display Complete Blood Count: No Data to Display Complete Metabolic Panel: No Data to Display Liver Function Panel: No Data to Display Coagulation Panel: No Data to Display Cardiac Panel: No Data to Display Arterial Blood Gas: No Data to Display Venous Blood Gas: No Data to Display Pancreas Panel: No Data to Display Thyroid Panel: No Data to Display Infectious Disease: No Data to Display Blood Cultures: No Data to Display Toxicology Panel: No Data to Display Panel: No Data to Display Anesthesia Assessment and Plan Anesthesia History Personal History: No History of Anesthesia Complications Family History: No Family History of Anesthesia Complications Exercise Tolerance Exercise Tolerance: Metabolic Equivalents>4 Pertinent Negatives Pertinent Negatives: No Symptoms of GERD, No Major Cardiovascular Symptoms or Complaints, No Major Pulmonary Symptoms or Complaints and No History of CVA/TIA Cardiac & Pulmonary Exam Cardiac Exam: Normal S1/S2 Heart Sounds Pulmonary Exam: Clear Bilateral Breath Sounds Implantable Cardiac Device Does patient have a Pacemaker or an ICD?: No Airway Exam Known Difficult Airway: No Mallampati Class: 2 Mouth Opening: Normal (> 3cm) Thyromental Distance: Greater than 3 cm Neck Range of Motion: Full ROM Neck Circumference: Normal Teeth Condition: Normal Dentition ASA Classification ASA Score: ASA 2 Emergency Case?: No NPO Status NPO Status: NPO Clears >2 hours, Solids >8 hours Status Status: Negative HCG Anesthesia Plan Resuscitation Status: Full Code Anesthesia Technique: General Anesthesia Airway Planned: Natural Airway Monitors Used: Standard Monitors
[2023-05-10 10:02] VITALS: BMI 29.0
[2023-05-10 10:53] VITALS: BP 86/47; PULSE 78; RESP 18; TEMP 36.5; O2SAT 100
[2023-05-10 11:16] VITALS: BP 94/75; PULSE 71; RESP 18; TEMP 36.5; O2SAT 100
--- NOTE | 2023-05-10 12:38 | W.ANESPOSTOP ---
Postoperative Evaluation Date, Time and Location Date Performed: 05/10/23 Time Performed: 12:39 Patient Location: Day Surgery Unit Vital Signs Most Recent Imported Vital Signs: Most Recent Vital Signs Temp Pulse Resp BP Pulse Ox 36.5 C 71 18 94/75 L 100 05/10/23 11:16 05/10/23 11:16 05/10/23 11:16 05/10/23 11:16 05/10/23 11:16 Pain Score Most Recent Pain Score: Most Recent Pain Score Pain Level 0 05/10/23 11:16 Assessment Mental Status: Awake (Alert & Oriented to Patient Baseline) Airway and Respiratory Function: Patent airway with normal (patient baseline) respiratory exam Cardiovascular Function: Hemodynamically Stable Hydration Status: Adequately Hydrated Nausea & Vomiting: No Nausea or Vomiting Pain: Pt. Denies Any Pain Peripheral Nerve Block: Patient did not receive a nerve block Postoperative Comments:: d/c'd home without apparent complication.
== END 2023-05-10 12:35 | disposition home or self-care (01) ==
LOC: SUR 09:15
PROVIDERS: PCP Nurse Practitioner Family; Visit Provider Surgery
PROC: 0DJD8ZZ Inspection of Lower Intestinal Tract, Via Natural or Artificial Opening Endoscopic (ICD-10-PCS; CPT 45378; principal; 2023-05-10 10:00)
DX: Z12.11 Encounter for screening for malignant neoplasm of colon; K57.30 Diverticulosis of large intestine without perforation or abscess without bleeding; F17.210 Nicotine dependence, cigarettes, uncomplicated
CPT/HCPCS: 45378

== ENCOUNTER 2023-08-26 11:34 | Outpatient (REF) | payer OTHER, SELFPAY ==
--- NOTE | 2023-08-26 11:00 | ENDOMET_PTH ---
PATIENT: Mini Huerta LOC: [facility] U#:[id number] AGE/SX: 48/F ROOM: RE08/26/[address]: Maegan Tamayo : 1975 BED: DIS: 08/26/2023 SPEC #: [id number] RECD: 08/26/23 13:07 STATUS: KATE GARCIA #: [id number] RAKEL: 08/26/23 11:[address]: Maegan Tamayo DEPT: Surgical Specimen RECD BY: Janette Hernandez ENTERED: 08/26/23 13:07 SP TYPE: Endomet OTHR DR: LUIGI Leyva Tissues: 1 - ENDOMETRIUM BX/CURRETTE Procedures: GROSS AND MICRO LEVEL 4 Comments: [id number]
== END 2023-08-26 11:35 | disposition home or self-care (01) ==
LOC: LBN 11:34
PROVIDERS: PCP Nurse Practitioner Family; Visit Provider Obstetrics & Gynecology Gynecology
DX: N89.8 Other specified noninflammatory disorders of vagina (principal)
CPT/HCPCS: 88305

== ENCOUNTER 2023-10-03 09:51 | Outpatient (CLI) | payer OTHER, SELFPAY ==
[2023-10-03 08:30] LABS: HCT 36.8 % (36.0-46.0); HGB 11.9 g/dL (11.2-15.7); MCH 28.2 pg (27.0-33.0); MCHC 32.3 % (32.0-36.0); MCV 87 fL (80-95); Platelet Count 287 10^3/uL (130-400); RBC 4.22 10^6/uL (3.93-5.22); RDW 12.6 % (11.7-14.6); RDW-SD 39.9 fL; WBC 6.14 10^3/uL (4.4-10.8)
[2023-10-03 09:05] LABS: ALT 26 U/L (14-59); AST 14 U/L (15-37); Albumin 3.2 g/dL (3.4-5.0); Alkaline Phosphatase 47 U/L (46-116); Anion Gap 7.9 mmol/L (3-11); BUN 20 mg/dL (7-18); Bilirubin, Total 0.3 mg/dL (0.2-1.0); CO2 30.1 mmol/L (21.0-32.0); CREATININE 0.9 mg/dL (0.55-1.02); Calcium 8.5 mg/dL (8.5-10.1); Chloride 106 mmol/L (98-107); Estimated GFR 79.35 (mL/min/1.73m2); Glucose 102 mg/dL (74-106); Sodium 144 mmol/L (136-145); Total Protein 6.8 g/dL (6.4-8.2)
[2023-10-03 09:52] LABS: HCG Qual (Serum) Negative
[2023-10-03 21:50] LABS: Lab Add On Test DONE
[2023-10-03 22:03] LABS: Calculated LDL 110 mg/dL (<100); Cholesterol 187 mg/dL (<200); HDL Cholesterol 55 mg/dL (40-60); Triglyceride 113 mg/dL (<150)
== END 2023-10-03 09:52 | disposition home or self-care (01) ==
LOC: LBO 09:51
PROVIDERS: PCP Nurse Practitioner Family; Visit Provider Obstetrics & Gynecology Gynecology
DX: Z01.818 Encounter for other preprocedural examination (principal); E66.9 Obesity, unspecified; Z85.3 Personal history of malignant neoplasm of breast; J45.909 Unspecified asthma, uncomplicated
CPT/HCPCS: 36415; 80053; 80061; 85027; 86850; 86900; 86901; 84703

== ENCOUNTER 2023-10-05 15:08 | Observation (INO) | payer OTHER, SELFPAY ==
[2023-10-05] VITALS (17 sets, daily range): BP systolic 79–125; BP diastolic 33–64; PULSE 68–98; RESP 12–18; TEMP 35.9–36.5; O2SAT 93–100; BMI 32.5
[2023-10-05] MEDS: Lactated Ringers 1,000 ML 125 ML IV ×4 (10:05→19:19)
--- NOTE | 2023-10-05 10:16 | ANES.PREOP_ITS ---
General Info Date of Service Date Performed: 10/05/23 Height: 5 ft 4 in Weight: 86.2 kg Body Mass Index (BMI): 32.5 Surgical Procedure: Operation Date: 10/05/23 11:10 Proposed Procedure Side Surgeon p Hysterectomy Vaginal Laparoscopic Assist, BSO, Bladder Cystoscopy Maegan Tamayo MD Meds Allergies and Home Medications Allergies Allergy/AdvReac Type Severity Reaction Status Date / Time No Known Allergies Allergy Verified 10/05/23 09:42 Home Medication Medication Instructions Recorded cholecalciferol (vitamin D3) 125 5,000 unit PO DAILY 03/22/18 mcg (5,000 unit) capsule epinephrine 0.3 mg/0.3 mL 0.3 ml IM ONCE PRN 09/07/19 injection, auto-injector hypersensitivity reaction #2 ea albuterol sulfate 90 mcg/actuation 2 puff inhalation Q4H PRN PRN 06/30/21 aerosol inhaler (ProAir HFA) shortness of breath or wheezing #8.5 grams evening primrose oil 500 mg capsule 500 mg PO DAILY 09/16/21 tamoxifen 20 mg tablet 20 mg PO DAILY 12/14/21 prochlorperazine maleate 5 mg 5 mg PO QID PRN nausea and 04/11/23 tablet (Compazine) vomiting #10 tabs Lexapro 10 mg tablet (escitalopram 10 mg PO DAILY #90 tabs 09/20/23 oxalate) dextroamphetamine-amphetamine 10 10 mg PO BID #56 tabs 09/20/23 mg tablet semaglutide (weight loss) 2.4 2.4 mg (0.75 mL) subcut QWEEK #9 mL 09/20/23 mg/0.75 mL subcutaneous pen injector Current Visit Medications: Current Medications Generic Name Dose Route Start Last Admin Trade Name Freq PRN Reason Stop Dose Admin Ringer's Solution 1,000 mls @ 125 mls/hr 10/05/23 06:00 10/05/23 10:05 IV 10/05/23 23:59 125 mls/hr INFUSION TIESHA Administration Cefazolin Sodium/Dextrose 2 gm in 50 mls @ 100 mls/hr 10/05/23 06:00 Ancef Duplex IVPB 10/05/23 23:59 PREOP TIESHA IV Miscellaneous Supplies 1 each 10/05/23 06:00 Iv Access IV 10/05/23 23:59 DIRECTED TIESHA Sodium Chloride 0 ml 10/05/23 06:00 Normal Saline Flush 10 Ml Syr IV 10/05/23 23:59 PRN PRN Sodium Chloride 0 ml 10/05/23 06:00 Normal Saline 10 Ml Vial IJ 10/05/23 23:59 DIRECTED PRN Sterile Water 0 ml 10/05/23 06:00 Water,Injection,Sterile 10 Ml Vial IJ 10/05/23 23:59 DIRECTED PRN PFSH Active Problems Active Problems: Problem Status Onset Code Preoperative exam for gynecologic surgery Z01.818 Use of tamoxifen (Nolvadex) Z79.810 Diverticula of colon K57.30 Shingles ~03/2023 B02.9 History of left breast cancer ~12/2019 Z85.3 Attention deficit disorder F98.8 Asthma J45.909 Generalized anxiety disorder F41.1 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 EMBx: Benign. Perimenopausal symptoms COVID-19 virus infection Symptom onset 08/10/20, tested positive 08/11/2011/2021 Malignant neoplasm of left breast (12/2019) 2020. DCIS, LCIS s/p partial mastectomy, radiation, Tamoxifen. followed by [facility] [place] [facility] Prediabetes Hyperlipidemia Cigarette smoker former- quit 10+ yrs ago Medical History Comments:: pt feels nasueous in pre-op. Surgical History Surgical History History of colonoscopy (~05/2023) Due 10 years History of endometrial biopsy performed today. I will notify pt of results when available. If nl will manage AUB expectantly. Status post partial mastectomy of left breast (02/15/20) History of bilateral tubal ligation (~2012) Tobacco Smoking/Tobacco Use Status: Former Tobacco Use Passive smoking exposure: Yes Second hand exposure: Yes Alcohol Alcohol Intake: former Year quit: 2016 Substance Use Substance use: Never Substance use type: does not use Prental History History 2 Para 2 Hx # Term Pregnancies Multiple births Hx # Pregnancies Ectopic pregnancies AB induced Hx Number of Living Children 2 AB spontaneous Vital Signs and Lab Results Vital Signs Most Recent Vital Signs in EMR: Most Recent Vital Signs Temp Pulse Resp BP Pulse Ox 36.1 C L 68 16 125/64 99 10/05/23 09:48 10/05/23 09:48 10/05/23 09:48 10/05/23 09:48 10/05/23 09:48 Lab Results Blood Type / Crossmatch: Patient ABO/Rh A Positive 10/03/23 Antibody Screen NEGATIVE 10/03/23 Complete Blood Count: White Blood Count 6.14 10^3/uL (4.4-10.8) 10/03/23 08:22 Red Blood Count 4.22 10^6/uL (3.93-5.22) 10/03/23 08:22 Hemoglobin 11.9 g/dL (11.2-15.7) 10/03/23 08:22 Hematocrit 36.8 % (36.0-46.0) 10/03/23 08:22 Platelet Count 287 10^3/uL (130-400) 10/03/23 08:22 Complete Metabolic Panel: Sodium 144 mmol/L (136-145) 10/03/23 08:22 Potassium 4.0 mmol/L (3.5-5.1) 10/03/23 08:22 Chloride 106 mmol/L (98-107) 10/03/23 08:22 Carbon Dioxide 30.1 mmol/L (21.0-32.0) 10/03/23 08:22 BUN 20 mg/dL (7-18) H 10/03/23 08:22 Creatinine 0.9 mg/dL (0.55-1.02) 10/03/23 08:22 Est GFR (CKD-EPI 2020) 79.35 (mL/min/1.73m2) 10/03/23 08:22 Calcium 8.5 mg/dL (8.5-10.1) 10/03/23 08:22 Albumin 3.2 g/dL (3.4-5.0) L 10/03/23 08:22 Glucose 102 mg/dL (74-106) 10/03/23 08:22 Liver Function Panel: Alanine Aminotransferase (ALT/SGPT) 26 U/L (14-59) 10/03/23 08: 22 Aspartate Amino Transf (AST/SGOT) 14 U/L (15-37) L 10/03/23 08: 22 Coagulation Panel: No Data to Display Cardiac Panel: No Data to Display Arterial Blood Gas: No Data to Display Venous Blood Gas: No Data to Display Pancreas Panel: No Data to Display Thyroid Panel: No Data to Display Infectious Disease: No Data to Display Blood Cultures: No Data to Display Toxicology Panel: No Data to Display Panel: Serum HCG, Qualitative Negative 10/03/23 08:22 Anesthesia Assessment and Plan Anesthesia History Personal History: No History of Anesthesia Complications Family History: No Family History of Anesthesia Complications Exercise Tolerance Exercise Tolerance: Metabolic Equivalents>4 Pertinent Negatives Pertinent Negatives: No Symptoms of GERD, No Major Cardiovascular Symptoms or Complaints, No Major Pulmonary Symptoms or Complaints and No History of CVA/TIA Cardiac & Pulmonary Exam Cardiac Exam: Normal S1/S2 Heart Sounds Pulmonary Exam: Clear Bilateral Breath Sounds Implantable Cardiac Device Does patient have a Pacemaker or an ICD?: No Airway Exam Known Difficult Airway: No Mallampati Class: 2 Mouth Opening: Normal (> 3cm) Thyromental Distance: Greater than 3 cm Neck Range of Motion: Full ROM Neck Circumference: Normal Teeth Condition: Normal Dentition ASA Classification ASA Score: ASA 2 Emergency Case?: No NPO Status NPO Status: NPO Clears >2 hours, Solids >8 hours Status Status: Negative HCG Anesthesia Plan Resuscitation Status: Full Code Anesthesia Technique: General Anesthesia Airway Planned: Endotracheal Tube Pain Management: Intrathecal Analgesia Monitors Used: Standard Monitors
[2023-10-05] MEDS: ceFAZolin 2 GM/50 ML BAG IVPB (12:03)
[2023-10-05] MEDS: Bupivacaine 0.25% Pres-Free 30 ML VIAL (12:43)
--- NOTE | 2023-10-05 13:02 | UTER_PTH ---
PATIENT: Mini Huerta LOC: U#:[id number] AGE/SX: 48/F ROOM: 228 RE10/05/[address]: Maegan Tamayo : 1975 BED: A DIS: 10/06/2023 SPEC #: [id number] RECD: 10/05/23 18:47 STATUS: KATE REQ #: [id number] RAKEL: 10/05/23 13:[address]: Maegan Tamayo DEPT: Surgical Specimen RECD BY: Janette Hernandez ENTERED: 10/05/23 18:49 SP TYPE: UTER OTHR DR: LUIGI Leyva Tissues: 1 - UTERUS W OR W/O OVARIES(NOT TUMOR/PROLAPSE) Procedures: GROSS AND MICRO LEVEL 5 Comments: [id number]
[2023-10-05] MEDS: Lidocaine 1% Multi-Dose W/EPI 1/100,000 50 ML VIAL (13:43)
[2023-10-05] MEDS: ePHEDrine 25 MG/5 ML Syringe IVP ×4 (15:15→15:52)
--- NOTE | 2023-10-05 15:46 | W.ANESPOSTOP ---
Postoperative Evaluation Date, Time and Location Date Performed: 10/05/23 Time Performed: 15:47 Patient Location: PACU Vital Signs Most Recent Imported Vital Signs: Most Recent Vital Signs Temp Pulse Resp BP Pulse Ox 36.5 C 81 17 94/42 L 93 10/05/23 15:40 10/05/23 15:40 10/05/23 15:40 10/05/23 15:40 10/05/23 15:40 Pain Score Most Recent Pain Score: Most Recent Pain Score Pain Level 1 10/05/23 15:40 Assessment Mental Status: Awake (Alert & Oriented to Patient Baseline) Airway and Respiratory Function: Patent airway with normal (patient baseline) respiratory exam Cardiovascular Function: Hemodynamically Stable Hydration Status: Adequately Hydrated Nausea & Vomiting: No Nausea or Vomiting Pain: Pain is tolerable per patient Peripheral Nerve Block: Other (IT Narcotics)
--- NOTE | 2023-10-05 16:16 | W.PM.OP ---
Date of service: 10/05/23 Time of Service: 16:17 Operative Note Operative Note DATE OF PROCEDURE: 10/05/23 PRE-OP DIAGNOSIS: abnormal uterine bleeding on tamoxifen, Hx breast cancer POST-OP DIAGNOSIS: same PROCEDURE: Laparoscopic assisted vaginal hysterectomy with bilateral salpingoophorectomy and bladder cystoscopy SURGEON: Maegan Tamayo ASSISTING SURGEON: Rupinder Pal ANESTHESIA TYPE: General LMA/ETT and Spinal Refer to Anesthesia Record ESTIMATED BLOOD LOSS: 200 PATHOLOGY: other (uterus, fallopian tubes and ovaries) COMPLICATIONS: None Patient was transported to: PACU Patient's condition: stable Indications: Pt is a 48yo female with recent episode of uterine bleeding while taking Tamoxifen. We discussed her concern about developing uterine cancer while being treated with Tamoxifen and wished to have a hysterectomy rather than undergo further EMBx for episodes of bleeding. Pt expressed her concern about developing uterine cancer and requested a hysterectomy. She was counseled regarding prophylactic oophorectomy secondary to her hx of left sided breast cancer. She requested the hysterectomy along with the oophorectomy. Findings: Bulky uterus with evidence of previous bilateral tubal sterilization. Right and left ovaries with adhesions to serosal surface of uterus and lateral abdominal wall. Left ovary with a smooth walled ovarian cyst. Nl upper abdomen and culdesac. Procedure Description: Patient was taken to the operating room where she received spinal anesthesia followed by general endotracheal anesthesia. She received 2 g of Ancef upon arrival in the OR. She was then placed in the dorsal lithotomy position in [facility] stirrups with SCDs in place. After being prepped and draped in the usual sterile fashion a surgical timeout was performed. Salmeron catheter was placed to gravity drainage. A bivalve speculum was placed in the vagina and the anterior lip of the cervix was grasped with a single-tooth tenaculum. A [employer] uterine manipulator was successfully inserted into the uterine cavity and the device left in place. Attention was then turned to the patient's abdomen. The umbilical fold was infiltrated with quarter percent Marcaine without epinephrine. A scalpel was then used to make a 12mm vertical skin incision in the umbilical fold. Two penetrating towel clips were used to tent up the skin and through the periumbilical incision and a Veres needle was introduced into the abdomen with carbon dioxide as the distention medium. Intra-abdominal placement was confirmed by a drop in the intra-abdominal pressure. Once a pneumoperitoneum was established a 12 mm Visiport was placed under direct visualization. Patient was then placed in Trendelenburg position. Two sites approximately 6 cm diagonally from the umbilical incision the skin were infiltrated with 1cc of 0.25% Marcaine without epinephrine, incised with a scalpel and two 5 mm lower ports were placed under direct visualization. After careful inspection of the pelvis a LigaSure electrocautery device was used to clamp, cauterize and transect the suspensory ligament of the left ovary. The left broad ligament was clamped, cauterized and transected to access the left round ligament which was then clamped, cauterized and transected to the level of the lower uterine segment. Uterine vessels were clamped and cauterized. The vesico-uterine peritoneum was incised and the the from the lower uterine segment and mobilized off of the body of the cervix. The pedicles of the suspensory, round and broad ligaments were inspected and noted to be hemostatic. On the contralateral side the right ovarian suspensory ligament, the round ligament and right broad ligament were sequentially clamped, cauterized and transected using the Ligasure device to the level of the insertion of the uterine vessels. The remaining the vesicouterine peritoneum was incised across the lower uterine segment and the bladder flap created using the Ligasure device and gentle counter traction. All pedicles were inspected and noted to be hemostatic. Decision was made to proceed with the vaginal portion of the case. Laparoscopic instruments were removed from the ports , the pneumoperitoneum was reduced, and the was abdomen covered with sterile drape. A weighted vaginal speculum was placed in the vagina and the anterior and posterior lips of the cervix were grasped with Grady clamps and the body of the cervix infiltrated with a dilute solution of 1% Lidocaine with epinephrine. A circumferential incision of the cervical epithelium was made with a Bovie electrocautery. The posterior cul-de-sac was entered sharply and through the this incision a long billed weighted speculum was placed. The left and right uterosacral ligament complexes were identified clamped, transected and suture-ligated and the suture held long. The vesicouterine fascia was identified and the anterior cul-de-sac incised and entered sharply. Through this incision a curved right angled retractor was inserted and used to retract the bladder away from the operative field. The remaining right and left broad ligament attatchments were sequentially clamped, cauterized, and transected and the specimen was passed off of the operative field. The vaginal cuff was reapproximated in a vertical fashion with a running suture of 0 Vicryl. Instruments removed from the vagina and attention was again turned to the abdomen where a pneumoperitoneum was reestablished and the pelvis inspected using the laparoscope.? The vaginal cuff was intact and was hemostatic as were the round ligament and broad ligament pedicles. The instruments were removed from the port sites, the pneumoperitoneum reduced and the ports removed. The fascia of the periumbilical skin incision was closed with interrupted suture of 0 Vicryl.? The skin of all port site incisions were reapproximated with a subcuticular closure of 4-0 Monocryl and and covered with skin glue. A cystoscopy was performed with both ureteral jets patent with a brisk reflux of urine from each.? The bladder was inspected and no evidence of sutures were present.? Salmeron catheter was reinserted to gravity drainage and the patient was placed in the dorsal supine position, awakened, extubated, and transported recovery area in stable condition.? All sponge lap needle counts correct x2.
[2023-10-05] MEDS: diphenhydrAMINE 25 MG CAP PO (19:18)
[2023-10-06 03:00] VITALS: BP 107/55; PULSE 80; RESP 19; TEMP 36.4; O2SAT 97
[2023-10-06] MEDS: Ketorolac 30 MG/ML VIAL IVP ×2 (03:00→08:37)
[2023-10-06] MEDS: Normal Saline Flush 10 ML SYR IV ×2 (03:01→08:38)
[2023-10-06] MEDS: Normal Saline Flush 10 ML SYR (03:16)
[2023-10-06] MEDS: Lactated Ringers 1,000 ML 125 ML IV (03:54)
[2023-10-06 06:48] LABS: HCT 30.7 % (36.0-46.0); HGB 9.6 g/dL (11.2-15.7); MCH 27.7 pg (27.0-33.0); MCHC 31.3 % (32.0-36.0); MCV 89 fL (80-95); MPV 9.5 fL (8.0-11.0); Platelet Count 244 10^3/uL (130-400); RBC 3.46 10^6/uL (3.93-5.22); RDW 12.8 % (11.7-14.6); RDW-SD 41.8 fL; WBC 16.09 10^3/uL (4.4-10.8)
[2023-10-06 07:43] VITALS: BP 105/65; PULSE 79; RESP 15; TEMP 37.1; O2SAT 97
--- NOTE | 2023-10-06 08:04 | W.PM.PROGNOT ---
Date of Service Date of service: 10/06/23 Time of Service: 08:05 Assessment and Plan Assessment and plan (1) S/P laparoscopic assisted vaginal hysterectomy (LAVH): Status: Acute Assessment and plan: f/u in [facility] in 2 weeks. (2) H/O bilateral salpingo-oophorectomy: Status: Acute Subjective Subjective Patient reports: no new complaints, tolerating a regular diet, no bowel movement and afebrile; denies nausea Exam Narrative Exam Narrative: POD1 LAVH/BSO, bladder cystoscopy. No issues over night. Pain minimal. Salmeron remains in place. Not out of bed yet. Const General: no acute distress Nutritional Appearance: well nourished Orientation: alert, awake and oriented x3 Neck Neck: normal visual inspection Resp Effort & Inspection: normal respiratory effort Auscultation: clear to auscultation bilaterally Cardio Rate: regular rate Rhythm: regular rhythm GI Inspection: normal to inspection, no abdominal wall ecchymosis and incision (covered with steri strips and band aid.) Palpation: soft, no hepatosplenomegaly, no masses and nontender General: deferred Back/Spine/Pelvis Back: no CVA tenderness Skin General skin exam: no rashes or lesions noted Neuro Cognition: normal cognition Speech: speech normal Gait: normal gait Extrem General: normal to inspection (SCD's in place.) Psych Appearance: grossly normal Mental Status: mental status grossly normal Speech and Movement: speech and movement normal Mood: congruent mood Affect: normal affect Objective Last Vital Signs Temp 98.8 F 10/06/23 07:43 Pulse 79 10/06/23 07:43 Resp 15 10/06/23 07:43 BP 105/65 10/06/23 07:43 Pulse Ox 97 10/06/23 07:43 Laboratory Results - last 24 hr 10/06/23 06:30 WBC 16.09 H RBC 3.46 L Hgb 9.6 L D Hct 30.7 L MCV 89 MCH 27.7 MCHC 31.3 L RDW 12.8 Plt Count 244 MPV 9.5 Time Spent with Patient Time Spent with Patient: <25 minutes Time was spent: preparing to see the patient(eg.review tests), ordering medications,tests, procedures, indepentently interpreting results and counseling the patient
[2023-10-06] MEDS: Docusate Sodium 100 MG CAP PO (08:37)
[2023-10-06] MEDS: Escitalopram 10 MG TAB PO (08:37)
--- NOTE | 2023-10-06 10:52 | W.PM.DS.N ---
Date of service: 10/06/23 Time of Service: 10:52 DS: Diagnosis Discharge Diagnosis (1) S/P laparoscopic assisted vaginal hysterectomy (LAVH): Status: Acute (2) H/O bilateral salpingo-oophorectomy: Status: Acute Discharge Plan Disposition Patient Disposition: Home Condition: Stable Discharge Details Reason For Visit: LAVH, BSO Admit Date/Time: 10/05/23 15:08 Admit Provider: Maegan Tamayo Attending Provider: Maegan Tamayo Primary Care Provider: Zoe Rodriguez Hospital Course Hospital Course: Pt was admitted the morning of the procedure and underwent an uncomplicated LAVH with BSO and bladder cystoscopy. Post op course was uncomplicated. She was discharged to home on POD1 tolerating a regular diet and voiding successfully after her smith catheter was removed. Incisions were covered with steristrips and bandaids. Pt was instructed to change the bandaids after showering and to leave the steri strips in place. Discharge meds: NSAIDs and PRN Percocet, called into the [facility] pharmacy. She will f/u in 2 weeks in [facility] office. Home Meds and New Rx's Prescriptions: No Action cholecalciferol (vitamin D3) 5,000 unit capsule 5,000 unit PO DAILY epinephrine 0.3 mg/0.3 mL auto-injector 0.3 ml IM ONCE PRN (Reason: hypersensitivity reaction) Qty: 2 0RF Patient Comments: pt has never used Rx Instructions: Administer once and immediately call emergency services albuterol sulfate [ProAir HFA] 90 mcg/actuation HFA aerosol inhaler 2 puff Inhalation Q4H PRN PRN (Reason: shortness of breath or wheezing) Qty: 8.5 5RF Patient Comments: 05/10/23 pt reports last used one year ago prochlorperazine maleate [Compazine] 5 mg tablet 5 mg PO QID PRN (Reason: nausea and vomiting) Qty: 10 0RF Patient Comments: 05/10/23 pt reports has never taken tamoxifen 20 mg tablet 20 mg PO DAILY evening primrose oil 500 mg capsule 500 mg PO DAILY dextroamphetamine-amphetamine 10 mg tablet 10 mg PO BID MDD 20mg Qty: 56 0RF Rx Instructions: Take 1 tablet twice a day, administer doses at least 4-6 hours apart semaglutide (weight loss) 2.4 mg/0.75 mL pen injector 2.4 mg subcut QWEEK Qty: 9 4RF escitalopram oxalate [Lexapro] 10 mg tablet 10 mg PO DAILY Qty: 90 3RF Discharge Instructions Additional Instructions: Keep your follow up appointment with Dr. Tamayo in 2 weeks. If one has not been scheduled then please call the office and make a postop appointment. You have steristrips and bandaids covering your incisions. Leave the steristrips in place until your postop appointment with Dr. Tamayo. Take Ibuprofen 600mg of over the counter tablets every 6 hours as needed for pain. You may take one tablet of Percocet 5/325mg every six hours for pain not relieved with the Ibuprofen. You may shower at anytime. No baths, nothing in the vagina including tampons until you have been seen for your two week post op appointment. 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 Activity:: Activity as Tolerated Equipment/Supplies:: No Equipment Needed Diet:: As Tolerated Discharge Orders Discharge Orders: Discharge Order (Routine); Ordered 10/06/23 Ordered By: Maegan Tamayo DS: Summary Time Spent with Patient providing and/or coordinating discharge services: Less than 30 minutes Status at Discharge Functional status at discharge: independent ambulation Overall status at discharge: patient is progressing back to baseline Mental Status: mental status grossly normal Speech and Movement: speech and movement normal Mood: congruent mood Affect: normal affect Quality:SDOH Health Related Social Needs: No Data to Display Exam Narrative Exam Narrative: POD1 LAVH/BSO, bladder cystoscopy. No issues over night. Pain minimal. Smith remains in place. Not out of bed yet. Const General: no acute distress Nutritional Appearance: well nourished Orientation: alert, awake and oriented x3 Neck Neck: normal visual inspection Resp Effort & Inspection: normal respiratory effort Auscultation: clear to auscultation bilaterally Cardio Rate: regular rate Rhythm: regular rhythm GI Inspection: normal to inspection, no abdominal wall ecchymosis and incision (covered with steri strips and band aid.) Palpation: soft, no hepatosplenomegaly, no masses and nontender General: deferred Back/Spine/Pelvis Back: no CVA tenderness Skin General skin exam: no rashes or lesions noted Neuro Cognition: normal cognition Speech: speech normal Gait: normal gait Extrem General: normal to inspection (SCD's in place.) Psych Appearance: grossly normal Mental Status: mental status grossly normal Speech and Movement: speech and movement normal Mood: congruent mood Affect: normal affect DS: Data Vitals/I&O Vitals and I&O: Vital Signs Temperature 98.8 F 10/06/23 07:43 Temperature Source Tympanic 10/06/23 07:43 Pulse 79 10/06/23 07:43 Pulse Rhythm Regular 10/06/23 03:26 Respiratory Rate 15 10/06/23 07:43 Respiratory Effort Normal, Non-Labored 10/06/23 03:26 Respiratory Depth Normal 10/06/23 03:26 Respiratory Pattern Normal 10/06/23 03:26 Blood Pressure 105/65 10/06/23 07:43 Pulse Oximetry 97 10/06/23 07:43 Respiratory End-tidal CO2 41 10/05/23 15:55 Oxygen Delivery Method Room Air 10/06/23 07:43 Oxygen Flow Rate 0 10/06/23 07:43 Pain Level 2 10/06/23 08:37 Intake & Output 10/05/23 10/05/23 10/06/23 11:59 23:59 11:59 Intake Total 3175 / 3175 1120 / 1120 Output Total 900 / 900 1550 / 1550 Balance 2275 / 2275 -430 / -430 Weight 190 lb 0.615 oz Intake: IV 1974 / 1974 1000 / 1000 Oral 1200 / 1200 120 / 120 Output: Urine 700 / 700 1550 / 1550 Estimated Blood Loss 200 / 200 Other: Urine Color Green Pale Indigo Urine Appearance Clear Clear Comment blue r/t dye injected intra-op pts catheter is due to be DC'd once pt is up and ambulating Emesis Description None Data Completed and Pending Labs on day of discharge: Labs from last 24 hours 10/06/23 06:30 WBC 16.09 H RBC 3.46 L Hgb 9.6 L D Hct 30.7 L MCV 89 MCH 27.7 MCHC 31.3 L RDW 12.8 Plt Count 244 MPV 9.5 PFSH All Active Problems (Updated 10/06/23 @ 10:50 by Maegan Tamayo MD) H/O bilateral salpingo-oophorectomy (Acute) 10/2023 S/P laparoscopic assisted vaginal hysterectomy (LAVH) (Acute) 10/2023 Use of tamoxifen (Nolvadex) (Acute) since 2019. Diverticula of colon (Acute) minor diverticula sigmoid colon Shingles (Acute ~03/2023) History of left breast cancer (Chronic ~12/2019) 2019. DCIS, LCIS s/p partial mastectomy, radiation, Tamoxifen. followed by [facility] Attention deficit disorder (Chronic) Asthma (Chronic) Generalized anxiety disorder (Chronic) [place] choroidopathy of right eye (Chronic) Obesity (Chronic) Lipoma of groin (Chronic) Left groin per [place] Medical History Abnormal uterine bleeding (AUB) (~2018) after 1 yr of amenorrhea secondary to Tamoxifen. EMBx: Benign. Perimenopausal symptoms COVID-19 virus infection Symptom onset 08/10/20, tested positive 08/11/2011/2021 Malignant neoplasm of left breast (12/2019) 2019. DCIS, LCIS s/p partial mastectomy, radiation, Tamoxifen. followed by [facility] Prediabetes Hyperlipidemia Cigarette smoker former- quit 10+ yrs ago Surgical History History of colonoscopy (~05/2023) Due 10 years History of endometrial biopsy performed today. I will notify pt of results when available. If nl will manage AUB expectantly. Status post partial mastectomy of left breast (02/15/20) History of bilateral tubal ligation (~2012) Family History Mother Asthma Illness induced bronchospasm Depression Hypertension Hyperlipidemia Lupus (systemic lupus erythematosus) Rheumatoid arthritis Hyperthyroidism Breast cancer Diabetes Father , at 54 of unknown cause Substance abuse Son Asthma Illness induced bronchospasm Son No problems noted. Maternal Grandfather Alcohol abuse Maternal Grandmother Alcohol abuse Stroke Paternal Grandfather No problems noted. Paternal Grandmother No problems noted. 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 Pets and animals: Yes Pets and animals: dog(s) and other Details: chickens Sexually active: Yes Do you think of yourself as: straight/heterosexual Current gender identity: female What is your relationship status?: How often do you talk on the phone with friends or family?: twice per week How often do you get together with friends or relatives?: once per week How often do you attend catholic or anabaptist services?: 4 or more times per year Do you belong to any clubs or organized social groups?: no Panel score (0-1 are the most socially isolated patients): 3 What type of physical activity do you participate in: bicycling Duration: 30-45 minutes/day Frequency: daily Ebony/Restorationist: Zoroastrian Special ebony needs: No Seatbelt use: always Helmet use: Yes Helmet use: always Drive intox or ride w/intox utility driver: No Do you feel safe at home: Yes Do you feel safe in your relationship?: Yes Female Reproductive History Menstrual control method: permanent sterilization Menopause type: natural Date of menopause: 03/03/21 History History 2 Para 2 Hx # Term Pregnancies Multiple births Hx # Pregnancies Ectopic pregnancies AB induced Hx Number of Living Children 2 AB spontaneous Time Spent with Patient Time Spent with Patient: <45 minutes Time was spent: preparing to see the patient(eg.review tests), obtaining and/or reviewing separately otained hiistory and ordering medications,tests, procedures
== END 2023-10-06 12:04 | disposition home or self-care (01) ==
LOC: MS 16:28
PROVIDERS: Admitting Provider Obstetrics & Gynecology Gynecology; PCP Nurse Practitioner Family
PROC: 0UT9FZZ Resection of Uterus, Via Natural or Artificial Opening With Percutaneous Endoscopic Assistance (ICD-10-PCS; CPT 58552; principal; 2023-10-05 11:00)
DX: N93.9 Abnormal uterine and vaginal bleeding, unspecified (principal); N83.292 Other ovarian cyst, left side; N73.6 Female pelvic peritoneal adhesions (postinfective); Z79.899 Other long term (current) drug therapy; C50.912 Malignant neoplasm of unspecified site of left female breast; F41.1 Generalized anxiety disorder; J45.909 Unspecified asthma, uncomplicated; H30.91 Unspecified chorioretinal inflammation, right eye; N83.8 Other noninflammatory disorders of ovary, fallopian tube and broad ligament
CPT/HCPCS: 58552; 36415; 85027; 88307; G0378; J0131; J0665; J0690; J1100; J1885; J2004; J2250; J2274; J2371; J2405; J2704

== ENCOUNTER 2024-01-13 21:09 | Outpatient (REF) | payer OTHER, SELFPAY ==
[2024-01-13 22:55] LABS: ALT 25 U/L (14-59); AST 14 U/L (15-37); Albumin 3.8 g/dL (3.4-5.0); Alkaline Phosphatase 49 U/L (46-116); Anion Gap 9.8 mmol/L (3-11); BUN 19 mg/dL (7-18); Bilirubin, Total 0.18 mg/dL (0.2-1.0); CO2 28.2 mmol/L (21.0-32.0); CREATININE 1.2 mg/dL (0.55-1.02); Calcium 8.8 mg/dL (8.5-10.1); Chloride 104 mmol/L (98-107); Estimated GFR 56.19 (mL/min/1.73m2); Glucose 105 mg/dL (74-106); Sodium 142 mmol/L (136-145); Total Protein 7.3 g/dL (6.4-8.2)
[2024-01-15 10:08] LABS: HIV-1/2 Ag & Ab Screen Negative (Negative)
[2024-01-16 11:13] LABS: HBs Antibody, Quant 95.5 mIU/mL (See Note); Hep B Surface Ab Positive (See Note); Hepatitis B Core Antibody Negative (Negative); Hepatitis B Surface Antigen Negative (Negative)
[2024-01-16 11:14] LABS: Hepatitis C Ab w Rflx HCV PCR Negative (Negative)
== END 2024-01-13 21:10 | disposition home or self-care (01) ==
LOC: LBN 21:09
PROVIDERS: PCP Nurse Practitioner Family; Visit Provider Nurse Practitioner Family
DX: Z11.59 Encounter for screening for other viral diseases (principal); N95.1 Menopausal and female climacteric states; Z11.4 Encounter for screening for human immunodeficiency virus [HIV]
CPT/HCPCS: 80053; 86704; 86706; 86803; 87340; 87389

== ENCOUNTER → 2024-01-18 01:46 | Outpatient (CLI) | payer OTHER, SELFPAY ==
--- NOTE | 2024-01-18 07:00 | DI.MAMMO_ITS ---
Exam(s) MG MAMMO SCREENING 60 MIN DUR EXAM: MG MAMMO SCREENING 60 MIN DUR CLINICAL HISTORY: breast cancer screening,personal h/o lt breast ca,z85.3. TECHNIQUE: Bilateral full field digital CC and MLO mammographic images were obtained with 3D tomosyn thesis and utilizing computer aided detection (CAD). COMPARISON: Prior mammograms were reviewed. Patient underwent left breast lumpectomy February 2020. FINDINGS: There has been no significant change in the appearance and distribution of the fibroglandular tissue. Appearance of the left breast lumpectomy site in the posterior aspect of the upper outer quadrant is stable. There are no new spiculated masses nor new malignant appearing microcalcification groups. There is no new significant architectural distortion nor skin thickening-retraction. IMPRESSION: No radiographic evidence of malignancy. Stable appearance of left breast lumpectomy site. BI-RADS Category 2 - Benign Findings Breast Density - Category B - Scattered areas of fibroglandular density Breast density Category C or D implies that the patient has dense breast tissue. Dense breast tissue can make it harder to find cancer on a mammogram. Dense breast tissue is also associated with an incr eased risk of breast cancer. This information about the result of the mammogram report was provided to the patient to raise their awareness. Use this report when you speak with the patient about their risks for breast cancer, which includes their family history. At that time, you may recommend additional screening tests (Ultrasoun d or MRI) as these tests may add significant information. A negative radiographic report should not delay biopsy if a dominant or clinically suspicious mass is present. Up to ten percent of cancers are not identified on mammography. A negative report may reinforce clinical impression. Adenosis and dense breasts may obscure an underlying neoplasm. False positive reports average 6 to 10%. Patient will receive a letter notifying them of these results.
== END ==
PROVIDERS: PCP Nurse Practitioner Family; Visit Provider Nurse Practitioner Family
DX: Z12.31 Encounter for screening mammogram for malignant neoplasm of breast (principal); Z85.3 Personal history of malignant neoplasm of breast; Z98.890 Other specified postprocedural states
CPT/HCPCS: 77063; 77067

== ENCOUNTER 2024-04-02 02:01 | Outpatient (CLI) | payer OTHER, SELFPAY ==
--- NOTE | 2024-04-02 | DI.DEXA_ITS ---
Exam(s) XR DEXA BONE DENSITY W/WO ADITI EXAM: XR DEXA BONE DENSITY W/WO ADITI CLINICAL HISTORY: CANCER OF UPPER OUTER QUADRANT OF L BREAST, ESTROGEN REC POS C50.412, Z17.0 TECHNIQUE: COMPARISON: No exams were available for comparison FINDINGS: Lateral Spine Image: Unremarkable. No compression deformities identified. Left hip: Total T-Score: 0.5 Total Z-Score: 0.9 T- and Z-scores: Within normal limits. Lumbar Spine: Total T-Score: -0.5 Total Z-Score: 0.1 T- and Z-scores: Within normal limits. IMPRESSION: No evidence of osteoporosis.
== END 2024-04-02 02:21 ==
LOC: DI 02:02
PROVIDERS: PCP Nurse Practitioner Family; Visit Provider Physician Assistant Medical
DX: Z13.820 Encounter for screening for osteoporosis (principal); C50.412 Malignant neoplasm of upper-outer quadrant of left female breast; Z17.0 Estrogen receptor positive status [ER+]
CPT/HCPCS: 77080

== ENCOUNTER 2024-05-24 21:13 | Outpatient (REF) | payer OTHER, SELFPAY ==
[2024-05-24 21:35] LABS: ALT 24 U/L (14-59); AST 13 U/L (15-37); Albumin 3.8 g/dL (3.4-5.0); Alkaline Phosphatase 54 U/L (46-116); Anion Gap 9.6 mmol/L (3-11); BUN 22 mg/dL (7-18); Bilirubin, Total 0.21 mg/dL (0.2-1.0); CO2 28.4 mmol/L (21.0-32.0); CREATININE 1.2 mg/dL (0.55-1.02); Chloride 107 mmol/L (98-107); Estimated GFR 55.84 (mL/min/1.73m2); Glucose 117 mg/dL (74-106); Sodium 145 mmol/L (136-145); Total Protein 7.2 g/dL (6.4-8.2)
[2024-05-25 18:47] LABS: HIV-1/2 Ag & Ab Screen Negative (Negative)
[2024-05-25 18:54] LABS: Hepatitis C Ab w Rflx HCV PCR Negative (Negative)
[2024-05-25 18:55] LABS: HBs Antibody, Quant 87.7 mIU/mL (See Note); Hep B Surface Ab Positive (See Note); Hepatitis B Core Antibody Negative (Negative); Hepatitis B Surface Antigen Negative (Negative)
== END 2024-05-24 21:14 | disposition home or self-care (01) ==
LOC: LBN 21:13
PROVIDERS: PCP Nurse Practitioner Family; Visit Provider Nurse Practitioner Family
DX: Z11.4 Encounter for screening for human immunodeficiency virus [HIV] (principal); N95.1 Menopausal and female climacteric states; Z11.59 Encounter for screening for other viral diseases
CPT/HCPCS: 80053; 86704; 86706; 86803; 87340; 87389

== ENCOUNTER 2024-08-29 09:42 | Outpatient (REF) | payer OTHER, SELFPAY ==
[2024-08-30 00:06] LABS: ALT 35 U/L (14-59); AST 14 U/L (15-37); Albumin 3.9 g/dL (3.4-5.0); Alkaline Phosphatase 56 U/L (46-116); Bilirubin, Direct 0.1 mg/dL (0.0-0.2); Bilirubin, Total 0.24 mg/dL (0.2-1.0); Total Protein 7.6 g/dL (6.4-8.2)
[2024-08-30 01:25] LABS: Vitamin D 25 Total 86.4 ng/mL (30-100)
[2024-08-30 22:01] LABS: FSH 32.2 mIU/mL (See Note)
[2024-08-30 22:05] LABS: Estradiol 16 pg/mL (See Note)
== END 2024-08-29 09:43 | disposition home or self-care (01) ==
LOC: LBN 09:42
PROVIDERS: PCP Nurse Practitioner Family; Visit Provider Physician Assistant Medical
DX: Z79.899 Other long term (current) drug therapy (principal); C50.412 Malignant neoplasm of upper-outer quadrant of left female breast; Z17.0 Estrogen receptor positive status [ER+]; N95.1 Menopausal and female climacteric states
CPT/HCPCS: 80076; 82306; 82670; 83001

== ENCOUNTER 2025-02-18 02:33 | Outpatient (CLI) | payer OTHER, SELFPAY ==
--- NOTE | 2025-02-18 07:00 | DI.MAMMO_ITS ---
Exam(s) MG MAMMO SCREENING 60 MIN DUR EXAM: MG MAMMO SCREENING 60 MIN DUR CLINICAL HISTORY: breast cancer screening,personal h/o breast ca,z85.3. TECHNIQUE: Bilateral full field digital CC and MLO mammographic images were obtained with 3D tomosynthesis and utilizing computer aided detection (CAD). COMPARISON: Prior mammograms were reviewed. FINDINGS: There is satisfactory stable appearance of the left breast lumpectomy site in the upper outer quadrant. There are no new spiculated masses nor new malignant appearing microcalcification groups in either breast.. There is no new significant architectural distortion nor new skin thickening-retraction. IMPRESSION: No radiographic evidence of malignancy. Stable left breast lumpectomy site. BI-RADS Category 2 - Benign Findings Breast Density - Category B - There are scattered areas of fibroglandular density. Breast density Category C or D implies that the patient has dense breast tissue. Dense breast tissue can make it harder to find cancer on a mammogram. Dense breast tissue is also associated with an increased risk of breast cancer. This information about the result of the mammogram report was provided to the patient to raise their awareness. Use this report when you speak with the patient about their risks for breast cancer, which includes their family history. At that time, you may recommend additional screening tests (Ultrasound or MRI) as these tests may add significant information. A negative radiographic report should not delay biopsy if a dominant or clinically suspicious mass is present. Up to ten percent of cancers are not identified on mammography. A negative report may reinforce clinical impression. Adenosis and dense breasts may obscure an underlying neoplasm. False positive reports average 6 to 10%. Patient will receive a letter notifying them of these results.
== END 2025-02-18 02:53 ==
LOC: DI 02:33
PROVIDERS: PCP Nurse Practitioner Family; Visit Provider Nurse Practitioner Family
DX: Z85.3 Personal history of malignant neoplasm of breast (principal); Z12.31 Encounter for screening mammogram for malignant neoplasm of breast; R92.323 Mammographic fibroglandular density, bilateral breasts
CPT/HCPCS: 77063; 77067